=== PATIENT | male | born 1965 | race African-American/Black ===

== ENCOUNTER 2017-10-01 09:17 | Inpatient (IN) | payer OTHER ==
[2017-10-01 11:27] VITALS: BMI 26.9
--- NOTE | 2017-10-01 14:52 | HP ---
CIWA Score - CIWA Score Nausea/Vomitin Muscle Tremors: 2 Anxiety: 1-Mildly Anxious Agitation: 0-Normal Activity Paroxysmal Sweats: 3 Orientation: 0-Oriented Tacttile Disturbances: 3-Moderate Itch/Numb/Burn Auditory Disturbances: 0-None Visual Disturbances: 0-None Headache: 4-Moderately Severe CIWA-Ar Total Score: 16 Admission ROS S - [facility] Chief Complaint: "I need to be clean because I am going for surgery soon." Pt. is here to Detox from Alcohol. Allergies/Adverse Reactions: Allergies Allergy/AdvReac Type Severity Reaction Status Date / Time fish derived [Fish derived] Allergy Mild Rash Verified 10/01/17 11:54 No Known Drug Allergies Allergy Verified 10/01/17 11:54 banana AdvReac Severe Vomiting Uncoded 10/01/17 11:54 History of Present Illness: Pt. is a 51 YO male here to Detox from Alcohol. Patient has had several previous Detox admissions at [facility] in the past (last: 06/2016). Pt. had a Detox Admission at [facility] ([place], [place] approx 6 months ago. Longest period of sobriety in recent years: approx. 1 month (03/2017). Exam Limitations: No Limitations - Ebola screening Have you traveled outside of the country in the last 21 days: No (N) Have you had contact with anyone from an Ebola affected area: No Have you been sick,other than usual withdrawal symptoms: No Do you have a fever: No - Review of Systems Constitutional: Chills, Diaphoresis, Fever, Loss of Appetite, Malaise, Night Sweats, Changes in sleep, Unintentional Wgt. Loss (Lost approx. 20 lbs over last 6 months.) EENT: reports: Blurred Vision Respiratory: reports: No Symptoms reported Cardiac: reports: Palpitations GI: reports: Nausea, Indigestion (Heartburn.) : reports: No Symptoms Reported Musculoskeletal: reports: Back Pain, Muscle Pain, Neck Pain, Joint Stiffness Integumentary: reports: Rash (On bilateral arms and legs X approx. week (no known cause). Patient reports that affected areas feel itchy and that this condition has occurred in the past that it was treated with hydrocortisone cream..) Neuro: reports: Headache, Numbness (Bilateral Feet.), Tingling (Bilateral Feet.) , Tremors Endocrine: reports: No Symptoms Reported Hematology: reports: No Symptoms Reported Psychiatric: reports: Judgement Intact, Mood/Affect Appropiate, Orientated x3, Anxious, Depressed (On meds.) Other Systems: Reviewed and Negative Patient History - Patient Medical History Hx Anemia: No Hx Asthma: No Hx Chronic Obstructive Pulmonary Disease (COPD): No Hx Cancer: No Hx Cardiac Disorders: No Hx Congestive Heart Failure: No Hx Hypertension: Yes (on meds.) Hx Hypercholesterolemia: Yes (simvastatin 20 mg) Hx Pacemaker: No HX Cerebrovascular Accident: No Hx Seizures: No Hx Dementia: No Hx Diabetes: Yes (On meds.) Hx Gastrointestinal Disorders: Yes (GERD) Hx Liver Disease: No Hx Genitourinary Disorders: No Hx Sexually Transmitted Disorders: No Hx Renal Disease (ESRD): No Hx Thyroid Disease: No Hx Human Immunodeficiency Virus (HIV): No (Last tested approx. 1 year ago: NEGATIVE.) Hx Hepatitis C: No (NEGATIVE HX) Hx Depression: Yes (And Anxiety; On meds.) Hx Suicide Attempt: No (PATIENT DENIES CURRENT SI / HI.) Hx Bipolar Disorder: Yes (On meds.) Hx Schizophrenia: No Other Medical History: Neuropathy - Bilateral Feet. - Patient Surgical History Past Surgical History: No Hx Neurologic Surgery: No Hx Cataract Extraction: No Hx Cardiac Surgery: No Hx Lung Surgery: No Hx Breast Surgery: No Hx Breast Biopsy: No Hx Abdominal Surgery: No Hx Appendectomy: No Hx Cholecystectomy: No Hx Genitourinary Surgery: No Hx Section: No Hx Orthopedic Surgery: No Anesthesia Reaction: No - PPD History Previous Implant?: Yes Documented Results: Positive w/o proof Implanted On Prior [facility] Admission?: No PPD to be Administered?: No - Reproductive History Patient is a Female of Child Bearing Age (11 -55 yrs old): No (PATIENT IS MALE.) - Smoking Cessation Smoking history: Current every day smoker Have you smoked in the past 12 months: Yes Aproximately how many cigarettes per day: 4 Cigars Per Day: 0 Hx Chewing Tobacco Use: No Initiated information on smoking cessation: Yes 'Breaking Loose' booklet given: 10/01/17 (GIVEN TO PATIENT.) - Substance & Tx. History Hx Alcohol Use: Yes Hx Substance Use: Yes Substance Use Type: Alcohol, Cocaine Hx Substance Use Treatment: Yes (Previous Detox admssions at [facility]; Detox admission at [facility] (02/2017).) - Substances Abused Alcohol Route: Oral Frequency: Daily Amount used: 2-3 pints liquor/ 2 6pks beer Age of first use: 16 Date of Last Use: 10/01/17 Cocaine Route: Smoking Frequency: Daily Amount used: $400-500 Age of first use: 17 Date of Last Use: 10/01/17 Family Disease History - Family Disease History Family Disease History: Diabetes: Father (.), Heart Disease: Brother ( HTN,CVA) Admission Physical Exam [facility] - Vital Signs Vital Signs: Vital Signs - 24 hr 10/01/17 11:24 Temperature 97.4 F L Pulse Rate 70 Respiratory 20 Rate Blood Pressure 144/91 - Physical General Appearance: Yes: No Apparent Distress, Nourished, Appropriately Dressed , Tremorous, Anxious HEENTM: Yes: Hearing grossly Normal, Normocephalic, Normal Voice, CHRISTINE, Pharynx Normal Respiratory: Yes: Chest Non-Tender, Lungs Clear, No Respiratory Distress, No Accessory Muscle Use Neck: Yes: No masses,lesions,Nodules, Supple, Trachea in good position Breast: Yes: Breast Exam Deferred Cardiology: Yes: Regular Rhythm, Regular Rate, S1, S2 Abdominal: Yes: Normal Bowel Sounds, Non Tender, Flat, Soft Genitourinary: Yes: Within Normal Limits Back: Yes: Decreased Range of Motion Musculoskeletal: Yes: Gait Steady, Back pain, Joint Stiffness, Muscle Pain Extremities: Yes: Normal Range of Motion, Tremors Neurological: Yes: Fully Oriented, Alert, Normal Mood/Affect, Normal Response Integumentary: Yes: Normal Color, Dry, Warm, Rash (Small areas of skin irritation on bilateral marion and legs. Patient reports that these areas are areas that he has been scratching.) Lymphatic: Yes: Within Normal Limits - Diagnostic (1) Alcohol dependence with uncomplicated withdrawal Current Visit: Yes Status: Acute (2) Cocaine dependence, uncomplicated Current Visit: Yes Status: Chronic (3) Eczema Current Visit: Yes Status: Chronic Qualifiers: Eczema type: other Qualified Code(s): L30.8 - Other specified dermatitis (4) GERD (gastroesophageal reflux disease) Current Visit: Yes Status: Chronic Qualifiers: Esophagitis presence: without esophagitis Qualified Code(s): K21.9 - Gastro -esophageal reflux disease without esophagitis (5) HTN (hypertension) Current Visit: Yes Status: Chronic Qualifiers: Hypertension type: essential hypertension (6) Hypercholesterolemia Current Visit: Yes Status: Chronic (7) Nicotine dependence Current Visit: Yes Status: Chronic Qualifiers: Nicotine product type: cigarettes Substance use status: uncomplicated Qualified Code(s): F17.210 - Nicotine dependence, cigarettes, uncomplicated (8) Type II diabetes mellitus Current Visit: Yes Status: Chronic Qualifiers: Diabetes mellitus complication status: without complication Diabetes mellitus exterminator insulin use: with exterminator use Qualified Code(s): E11.9 - Type 2 diabetes mellitus without complications; Z79.4 - [facility]CI (current) use of insulin; Z79.4 - [facility]CI (current) use of insulin; Z79.4 - [facility]CI ( current) use of insulin; Z79.4 - [facility]CI (current) use of insulin (9) History of depression Current Visit: Yes Status: Chronic (10) History of bipolar disorder Current Visit: Yes Status: Chronic (11) Neuropathy Current Visit: Yes Status: Chronic Cleared for Admission S - Detox or Rehab [facility] Level of Care: Medically Managed Detox Regimen/Protocol: Valium [facility] Breath Alcohol Content Breath Alcohol Content: 0 Urine Drug Screen - Results Drug Screen Negative: No Urine Drug Screen Results: ANCELMO-Cocaine
[2017-10-01] MEDS ORDERED: LOPERAMIDE HCL 2 MG CAPSULE PO PRN (15:25)
[2017-10-01] MEDS ORDERED: chlordiazePOXIDE HCL 25 MG CAPSULE PO PRN (15:25)
[2017-10-01] MEDS ORDERED: MAGNESIUM HYDROX 2400MG/30ML ORAL SUSPENSION 30 ML CUP PO PRN (15:25)
[2017-10-01] MEDS ORDERED: MAGNESIUM CITRATE 300 ML BOTTLE PO PRN (15:25)
[2017-10-01] MEDS ORDERED: MAG HYDROX/AL HYDROX/SIMETH 30 ML UNIT-DOSE CUP PO PRN (15:25)
[2017-10-01] MEDS ORDERED: P-EPHED 60MG/TRIPROLIDI 2.5MG TABLET PO PRN (15:25)
[2017-10-01] MEDS ORDERED: MENTHOL/PHENOL 1 EACH UD MM PRN (15:25)
[2017-10-01] MEDS ORDERED: guaiFENesin/D-METHORPHAN HB 10 ML UNIT-DOSE CUPS PO PRN (15:25)
[2017-10-01] MEDS ORDERED: chlordiazePOXIDE HCL 25 MG CAPSULE PO ONE (15:25)
[2017-10-01] MEDS ORDERED: IBUPROFEN 400 MG TABLET (FP) PO PRN (15:25)
[2017-10-01] MEDS ORDERED: NICOTINE POLACRILEX 2 MG GUM BUC PRN (15:25)
[2017-10-01] MEDS ORDERED: diazePAM 5 MG TABLET PO ONE (15:41)
[2017-10-01] MEDS ORDERED: metFORMIN HCL 500 MG TABLET (FP) PO SCH (16:30)
--- NOTE | 2017-10-01 16:32 | PN ---
[facility] Progress Note Note: Received call from [facility] pharmacist noting that patient's GFR on previous visit was < 45; therefore, dose of Metformin is recommended to be 500 mg PO BID despite fact that patient reports that he takes 1000 mg PO BID. Metformin dose changed for time being to 500 mg BID. Will evaluate pt.'s Renal labs tomorrow AM before determining whether or not then increase Metformin dosage. Mark Bills NP
[2017-10-01] MEDS: metFORMIN HCL 500 MG TABLET (FP) PO SCH (16:58)
[2017-10-01] MEDS ORDERED: chlordiazePOXIDE HCL 25 MG CAPSULE PO SCH (17:00)
--- NOTE | 2017-10-01 18:03 | CONSULT ---
[facility] Psychiatric Consult - Data Date of interview: 10/01/17 Admission source: [facility] Identifying data: Readmission to [facility] for this 51 y/o AA male seeking detox treatment on for alcohol and cocaine dependence.Patient is single, father of two,domiciled,curently unemployed and supported on [facility] benefits. Substance Abuse History: Confirmed by patient in this session.Details in current [facility] report : Smoking history: Current every day smoker. Have you smoked in the past 12 months: Yes. Aproximately how many cigarettes per day: 4. Cigars Per Day: 0. Hx Chewing Tobacco Use: No. Initiated information on smoking cessation: Yes. 'Breaking Loose' booklet given: 10/01/17 (GIVEN TO PATIENT.). - Substance & Tx. History. Hx Alcohol Use: Yes. Hx Substance Use: Yes. Substance Use Type: Alcohol, Cocaine. Hx Substance Use Treatment: Yes ( Previous Detox admssions at [facility]; Detox admission at [facility] (02/2017).). - Substances Abused. Alcohol. Route: Oral. Frequency: Daily. Amount used: 2 -3 pints liquor/ 2 6pks beer. Age of first use: 16. Date of Last Use: . Cocaine. Route: Smoking. Frequency: Daily. Amount used: $400-500. Age of first use: 17. Date of Last Use: 10/01/17 Medical History: Neuropathy,GERD,hypertension,hypercholesterolemia,diabetes mellitus and past history of treatment for anal warts. Psychiatric History: Onset of mental illness (age 39) as per self- report.Diagnosed with MDD and Anxiety Disorder.One psychiatric hospitalization ( 2009) at [facility] in 2009.Mr Hopkins continues to get his outpatient psychiatric services at [facility],located in [facility].Maintained on a regimen of wellbutrin XL 150 mg po/day + seroquel XR 200 mg/hs.Patient endorses adequate adherence to medications (last taken two days ago).No reported history of suicide attempts. Physical/Sexual Abuse/Trauma History: Patient denies. Additional Comment: Urine Drug Screen Results: ANCELMO-Cocaine.Noted. Mental Status Exam - Mental Status Exam Alert and Oriented to: Time, Place, Person Cognitive Function: Good Patient Appearance: Well Groomed Mood: Hopeful, Euthymic Affect: Appropriate, Normal Range Patient Behavior: Fatigued, Cooperative Speech Pattern: Clear, Appropriate Voice Loudness: Normal Thought Process: Goal Oriented Thought Disorder: Not Present Hallucinations: Denies Suicidal Ideation: Denies Homicidal Ideation: Denies Insight/Judgement: Poor Sleep: Poorly, Difficulty falling asleep Appetite: Good Muscle strength/Tone: Normal Gait/Station: Normal Psychiatric Findings - Problem List ([place] 1, 2,3) (1) Alcohol dependence with uncomplicated withdrawal Current Visit: Yes Status: Acute (2) Cocaine dependence, uncomplicated Current Visit: Yes Status: Acute (3) Nicotine dependence Current Visit: Yes Status: Acute Qualifiers: Nicotine product type: cigarettes Substance use status: in withdrawal Qualified Code(s): F17.213 - Nicotine dependence, cigarettes, with withdrawal (4) MDD (major depressive disorder) Current Visit: No Status: Chronic Comment: Self-report.On medications and affiliated with [facility] for outpatient psychiatric services. (5) Insomnia Current Visit: Yes Status: Acute - Initial Treatment Plan Initial Treatment Plan: Old records revisited.Psychoeducation and support provided.Detoxification in progress.Medications : wellbutric XL 150 mg po daily + seroquel 100 mg po hs.Ordered.Side effects/benefits of both drugs are discussed with the patient.Consent (verbal) given by patient for this careplan.Observation.Pharmacy claims of JulyAugust 2017 confirmed refills for these medications.Will titrate seroquel to 200 mg/hs if no occurrence of oversedation in next 24-48 hours.
[2017-10-01 21:36] LABS: URINE APPEARANCE CLEAR; URINE BILIRUBIN NEGATIVE (NEGATIVE); URINE BLOOD NEGATIVE (NEGATIVE); URINE COLOR LTYELLOW; URINE GLUCOSE (UA) 3+ (NEGATIVE); URINE KETONE NEGATIVE (NEGATIVE); URINE LEUK ESTERASE NEGATIVE (NEGATIVE); URINE NITRITE NEGATIVE (NEGATIVE); URINE UROBILINOGEN NEGATIVE mg/dL (0.2-1.0)
[2017-10-01 21:39] LABS: URINE PROTEIN 2+ (NEGATIVE)
[2017-10-01] MEDS: INSULIN DETEMIR 100 UNITS/ML MDV SQ SCH (21:47)
[2017-10-01] MEDS: THIAMINE HCL 100 MG TABLET (FP) PO SCH (21:48)
[2017-10-01] MEDS: HYDROCORTISONE 0.5% TOPICAL OINTMENT TUBE TP SCH (21:48)
[2017-10-01] MEDS: QUEtiapine FUMARATE 100 MG TABLET (FP) PO SCH (21:49)
[2017-10-01] MEDS: PATIENT'S OWN MEDICATION (NON-FORMULARY) (Simvastatin 20 MG) PO SCH (21:49)
[2017-10-01] MEDS: diazePAM 5 MG TABLET PO SCH (21:49)
[2017-10-02] MEDS: diazePAM 5 MG TABLET PO SCH ×3 (05:46→22:54)
[2017-10-02] MEDS: metFORMIN HCL 500 MG TABLET (FP) PO SCH ×2 (08:19→16:42)
[2017-10-02] MEDS: glyBURIDE 5 MG TABLET (UD) PO SCH (08:19)
[2017-10-02] MEDS ORDERED: ERGOCALCIFEROL (VITAMIN D2) 50,000 UNIT CAPSULE (FP) PO SCH (10:00)
[2017-10-02 10:10] LABS: HEMATOCRIT 40.8 % (35.4-49); HEMOGLOBIN 13.4 GM/dL (11.7-16.9); MCH 27.4 pg (25.7-33.7); MCHC 32.9 g/dl (32.0-35.9); MEAN CELL VOLUME 83.5 fl (80-96); MEAN PLT VOLUME 9.9 fl (7.5-11.1); PLATELET COUNT 302 K/MM3 (134-434); RBC 4.89 M/mm3 (4.00-5.60); RDW 14.6 % (11.9-15.9); WHITE BLOOD COUNT 8.8 K/mm3 (4.0-10.0)
[2017-10-02 10:14] LABS: CHLORIDE 103 mmol/L (98-107); POTASSIUM 4.4 mmol/L (3.5-5.1); SODIUM 138 mmol/L (136-145)
[2017-10-02 10:29] LABS: ALBUMIN 3.3 g/dl (3.4-5.0); ALK PHOS 102 U/L (45-117); ANION GAP 10 (8-16); BILIRUBIN,TOTAL 0.3 mg/dL (0.2-1.0); BLOOD UREA NITROGEN 14 mg/dL (7-18); CALCIUM 8.5 mg/dL (8.5-10.1); CO2 25 mmol/L (21-32); CREATININE 1.7 mg/dL (0.7-1.3); SGOT/AST 12 U/L (15-37); SGPT/ALT 18 U/L (12-78); TOT PROT 7.1 g/dl (6.4-8.2)
--- NOTE | 2017-10-02 10:34 | EKG ---
Test Reason : Blood Pressure : / mmHG Vent. Rate : 069 BPM Atrial Rate : 069 BPM P-R Int : 176 ms QRS Dur : 090 ms QT Int : 434 ms P-R-T Axes : 078 046 009 degrees QTc Int : 465 ms NORMAL SINUS RHYTHM NORMAL ECG NO PREVIOUS ECGS AVAILABLE Confirmed by FAMILIA ORTIZ MD ([id number]) on 10/02/2017 10:34:23 AM Referred By: Confirmed By:FAMILIA ORTIZ MD
[2017-10-02 10:48] LABS: GLUCOSE,RANDOM 376 mg/dL (74-106)
[2017-10-02] MEDS: LISINOPRIL 5 MG TABLET (FP) PO SCH (10:51)
[2017-10-02] MEDS: HYDROCORTISONE 0.5% TOPICAL OINTMENT TUBE TP SCH ×2 (10:52→22:54)
[2017-10-02] MEDS: diazePAM 5 MG TABLET PO PRN (10:52)
[2017-10-02] MEDS: ASPIRIN COATED 81 MG TABLET.EC PO SCH (10:52)
[2017-10-02] MEDS: PRENATAL VITAMINS W/ FOLIC ACID TABLET (FP) PO SCH (10:52)
--- NOTE | 2017-10-02 10:53 | PN ---
[facility] CIWA - CIWA Score Nausea/Vomitin-No Nausea/No Vomiting Muscle Tremors: 4-Moderate,w/Arms Extend Anxiety: 5 Agitation: 4-Moderately Restless Paroxysmal Sweats: 1-Minimal Palms Moist Orientation: 0-Oriented Tacttile Disturbances: 3-Moderate Itch/Numb/Burn Auditory Disturbances: 0-None Visual Disturbances: 0-None Headache: 0-None Present CIWA-Ar Total Score: 17 [facility] Progress Note (SOAP) Subjective: ANXIETY,IRRITABILITY,INTERMITTENT SLEEP. Objective: 10/02/17 10:52 Vital Signs Temperature 99.5 F 10/02/17 10:23 Pulse Rate 74 10/02/17 10:23 Respiratory Rate 18 10/02/17 10:23 Blood Pressure 118/65 10/02/17 10:23 O2 Sat by Pulse Oximetry (%) Laboratory Last Values WBC 8.8 K/mm3 (4.0-10.0) 10/02/17 05:45 RBC 4.89 M/mm3 (4.00-5.60) 10/02/17 05:45 Hgb 13.4 GM/dL (11.7-16.9) 10/02/17 05:45 Hct 40.8 % (35.4-49) 10/02/17 05:45 MCV 83.5 fl (80-96) 10/02/17 05:45 MCH 27.4 pg (25.7-33.7) 10/02/17 05:45 MCHC 32.9 g/dl (32.0-35.9) 10/02/17 05:45 RDW 14.6 % (11.9-15.9) 10/02/17 05:45 Plt Count 302 K/MM3 (134-434) D 10/02/17 05:45 MPV 9.9 fl (7.5-11.1) 10/02/17 05:45 Sodium 138 mmol/L (136-145) 10/02/17 05:45 Potassium 4.4 mmol/L (3.5-5.1) 10/02/17 05:45 Chloride 103 mmol/L (98-107) 10/02/17 05:45 Carbon Dioxide 25 mmol/L (21-32) 10/02/17 05:45 Anion Gap 10 (8-16) 10/02/17 05:45 BUN 14 mg/dL (7-18) 10/02/17 05:45 Creatinine 1.7 mg/dL (0.7-1.3) H 10/02/17 05:45 Creat Clearance w eGFR 43.05 (>60) 10/02/17 05:45 POC Glucometer 263 UNITS (80-120) 10/02/17 05:44 Random Glucose 376 mg/dL (74-106) H* D 10/02/17 05:45 Calcium 8.5 mg/dL (8.5-10.1) 10/02/17 05:45 Total Bilirubin 0.3 mg/dL (0.2-1.0) D 10/02/17 05:45 AST 12 U/L (15-37) L D 10/02/17 05:45 ALT 18 U/L (12-78) 10/02/17 05:45 Alkaline Phosphatase 102 U/L (45-117) D 10/02/17 05:45 Total Protein 7.1 g/dl (6.4-8.2) 10/02/17 05:45 Albumin 3.3 g/dl (3.4-5.0) L 10/02/17 05:45 Urine Color Ltyellow 10/01/17 20:00 Urine Appearance Clear 10/01/17 20:00 Urine pH 5.0 (5.0-8.0) 10/01/17 20:00 Ur Specific [place] 1.026 (1.001-1.035) 10/01/17 20:00 Urine Protein 2+ (NEGATIVE) H 10/01/17 20:00 Urine Glucose (UA) 3+ (NEGATIVE) H 10/01/17 20:00 Urine Ketones Negative (NEGATIVE) 10/01/17 20:00 Urine Blood Negative (NEGATIVE) 10/01/17 20:00 Urine Nitrite Negative (NEGATIVE) 10/01/17 20:00 Urine Bilirubin Negative (NEGATIVE) 10/01/17 20:00 Urine Urobilinogen Negative mg/dL (0.2-1.0) 10/01/17 20:00 Ur Leukocyte Esterase Negative (NEGATIVE) 10/01/17 20:00 Urine WBC (Auto) <1 /hpf (3-5) 10/01/17 20:00 Urine RBC (Auto) <1 /hpf (0-3) 10/01/17 20:00 HIV 1&2 Antibody Screen Negative 10/01/17 12:00 HIV P24 Antigen Negative 10/01/17 12:00 LABS NOTED. Assessment: 10/02/17 10:53 WITHDRAWAL SX Plan: CONTINUE DETOX
[2017-10-02] MEDS: PATIENT'S OWN MEDICATION (NON-FORMULARY) (Omeprazole [Prilosec] 40 MG) PO SCH (10:54)
[2017-10-02] MEDS ORDERED: INSULIN (NOVOLOG) ASPART 100 UNITS/ML 10ML VIAL SQ ONE (12:38)
[2017-10-02] MEDS ORDERED: chlordiazePOXIDE HCL 25 MG CAPSULE PO SCH (17:00)
[2017-10-02] MEDS: INSULIN SLIDING SCALE (NOVOLOG) 1 VIAL SQ SCH (17:02)
[2017-10-02] MEDS: THIAMINE HCL 100 MG TABLET (FP) PO SCH (22:53)
[2017-10-02] MEDS: PATIENT'S OWN MEDICATION (NON-FORMULARY) (Simvastatin 20 MG) PO SCH (22:54)
[2017-10-02] MEDS: QUEtiapine FUMARATE 100 MG TABLET (FP) PO SCH (22:54)
[2017-10-02] MEDS: INSULIN DETEMIR 100 UNITS/ML MDV SQ SCH (22:55)
[2017-10-03] MEDS: glyBURIDE 5 MG TABLET (UD) PO SCH ×2 (07:14→07:27)
[2017-10-03] MEDS: metFORMIN HCL 500 MG TABLET (FP) PO SCH ×3 (07:15→16:33)
[2017-10-03] MEDS: INSULIN SLIDING SCALE (NOVOLOG) 1 VIAL SQ SCH ×2 (07:15→17:04)
[2017-10-03] MEDS ORDERED: AMOX TR/POT CLAV 875MG/125MG TABLETS (FP) PO ONE (09:34)
[2017-10-03] MEDS ORDERED: LIDOCAINE VISCOUS 2% ORAL/TOP 20 ML UNIT-DOSE CUP MM ONE (09:38)
[2017-10-03] MEDS ORDERED: LIDOCAINE VISCOUS 2% ORAL/TOP 20 ML UNIT-DOSE CUP MM PRN (09:39)
[2017-10-03] MEDS: PATIENT'S OWN MEDICATION (NON-FORMULARY) (Omeprazole [Prilosec] 40 MG) PO SCH (10:34)
[2017-10-03] MEDS: diazePAM 5 MG TABLET PO SCH ×2 (10:34→22:53)
[2017-10-03] MEDS: ASPIRIN COATED 81 MG TABLET.EC PO SCH (10:34)
[2017-10-03] MEDS: LISINOPRIL 5 MG TABLET (FP) PO SCH (10:35)
[2017-10-03] MEDS: HYDROCORTISONE 0.5% TOPICAL OINTMENT TUBE TP SCH ×2 (10:35→22:51)
[2017-10-03] MEDS: PRENATAL VITAMINS W/ FOLIC ACID TABLET (FP) PO SCH (10:35)
[2017-10-03] MEDS: ACETAMINOPHEN 325 MG TABLET (FP) PO PRN (10:38)
[2017-10-03] MEDS: CYCLOBENZAPRINE HCL 10 MG TABLET (FP) PO PRN ×2 (10:38→16:59)
--- NOTE | 2017-10-03 12:22 | PN ---
[facility] CIWA - CIWA Score Nausea/Vomitin-No Nausea/No Vomiting Muscle Tremors: 4-Moderate,w/Arms Extend Anxiety: 4-Mod. Anxious/Guarded Agitation: 4-Moderately Restless Paroxysmal Sweats: 1-Minimal Palms Moist Orientation: 0-Oriented Tacttile Disturbances: 3-Moderate Itch/Numb/Burn Auditory Disturbances: 0-None Visual Disturbances: 0-None Headache: 1-Very Mild CIWA-Ar Total Score: 17 [facility] Progress Note (SOAP) Subjective: ANXIETY,IRRITABILITY,TOOTH ACHE. PT STATES HAD APPOINTMENT TO THE DENTIST ON DAY HE CAME INTO DETOX RATHER THAN KEEPING THE APPOINTMENT, "CAME HERE TO TAKE CARE OF MY PROBLEM". Objective: 10/03/17 12:19 Vital Signs Temperature 96.5 F L 10/03/17 09:52 Pulse Rate 88 10/03/17 09:52 Respiratory Rate 20 10/03/17 09:52 Blood Pressure 135/87 10/03/17 09:52 O2 Sat by Pulse Oximetry (%) Laboratory Last Values WBC 8.8 K/mm3 (4.0-10.0) 10/02/17 05:45 RBC 4.89 M/mm3 (4.00-5.60) 10/02/17 05:45 Hgb 13.4 GM/dL (11.7-16.9) 10/02/17 05:45 Hct 40.8 % (35.4-49) 10/02/17 05:45 MCV 83.5 fl (80-96) 10/02/17 05:45 MCH 27.4 pg (25.7-33.7) 10/02/17 05:45 MCHC 32.9 g/dl (32.0-35.9) 10/02/17 05:45 RDW 14.6 % (11.9-15.9) 10/02/17 05:45 Plt Count 302 K/MM3 (134-434) D 10/02/17 05:45 MPV 9.9 fl (7.5-11.1) 10/02/17 05:45 Sodium 138 mmol/L (136-145) 10/02/17 05:45 Potassium 4.4 mmol/L (3.5-5.1) 10/02/17 05:45 Chloride 103 mmol/L (98-107) 10/02/17 05:45 Carbon Dioxide 25 mmol/L (21-32) 10/02/17 05:45 Anion Gap 10 (8-16) 10/02/17 05:45 BUN 14 mg/dL (7-18) 10/02/17 05:45 Creatinine 1.7 mg/dL (0.7-1.3) H 10/02/17 05:45 Creat Clearance w eGFR 43.05 (>60) 10/02/17 05:45 POC Glucometer 204 UNITS (80-120) 10/03/17 07:24 Random Glucose 376 mg/dL (74-106) H* D 10/02/17 05:45 Calcium 8.5 mg/dL (8.5-10.1) 10/02/17 05:45 Total Bilirubin 0.3 mg/dL (0.2-1.0) D 10/02/17 05:45 AST 12 U/L (15-37) L D 10/02/17 05:45 ALT 18 U/L (12-78) 10/02/17 05:45 Alkaline Phosphatase 102 U/L (45-117) D 10/02/17 05:45 Total Protein 7.1 g/dl (6.4-8.2) 10/02/17 05:45 Albumin 3.3 g/dl (3.4-5.0) L 10/02/17 05:45 Urine Color Ltyellow 10/01/17 20:00 Urine Appearance Clear 10/01/17 20:00 Urine pH 5.0 (5.0-8.0) 10/01/17 20:00 Ur Specific [place] 1.026 (1.001-1.035) 10/01/17 20:00 Urine Protein 2+ (NEGATIVE) H 10/01/17 20:00 Urine Glucose (UA) 3+ (NEGATIVE) H 10/01/17 20:00 Urine Ketones Negative (NEGATIVE) 10/01/17 20:00 Urine Blood Negative (NEGATIVE) 10/01/17 20:00 Urine Nitrite Negative (NEGATIVE) 10/01/17 20:00 Urine Bilirubin Negative (NEGATIVE) 10/01/17 20:00 Urine Urobilinogen Negative mg/dL (0.2-1.0) 10/01/17 20:00 Ur Leukocyte Esterase Negative (NEGATIVE) 10/01/17 20:00 Urine WBC (Auto) <1 /hpf (3-5) 10/01/17 20:00 Urine RBC (Auto) <1 /hpf (0-3) 10/01/17 20:00 RPR Titer Nonreactive (NONREACTIVE) 10/02/17 05:45 Hepatitis C Antibody 4.3 s/co ratio (0.0-0.9) H 10/01/17 05:45 HIV 1&2 Antibody Screen Negative 10/01/17 12:00 HIV P24 Antigen Negative 10/01/17 12:00 RED SWOLLEN GUM WITH ROTTED MOLAR TOOTH ON RIGHT LOWER JAW. CXR- NO PATHOLOGY;NO CHANGE FROM PREVIOUS Assessment: 10/03/17 12:21 WITHDRAWAL SX TOOTH ABSCESS GINGIVITIS Plan: CONTINUE DETOX AUGMENTIN 875 MG PO BID LIDOCAINE SWISH DIRECTED PRN.
[2017-10-03] MEDS ORDERED: INSULIN (NOVOLOG) ASPART 100 UNITS/ML 10ML VIAL ONE ×2 (16:58→17:54)
[2017-10-03] MEDS: diazePAM 5 MG TABLET PO PRN (16:59)
[2017-10-03] MEDS ORDERED: chlordiazePOXIDE 5 MG CAPSULE PO SCH (17:00)
[2017-10-03] MEDS: NAPROXEN 375 MG TABLET (FP) PO PRN (17:00)
--- NOTE | 2017-10-03 17:46 | PN ---
[facility] Progress Note Note: Psychiatry Attending's note (follow-up): Met with patient. Complaint : insomnia. Patient is ambulatory. No evidence of oversedation. Steady gait. Seroquel 200 mg po hs.Ordered. Patient agrees with plan.
[2017-10-03] MEDS: INSULIN DETEMIR 100 UNITS/ML MDV SQ SCH (22:52)
[2017-10-03] MEDS: THIAMINE HCL 100 MG TABLET (FP) PO SCH (22:53)
[2017-10-03] MEDS: PATIENT'S OWN MEDICATION (NON-FORMULARY) (Simvastatin 20 MG) PO SCH (22:53)
[2017-10-03] MEDS: QUEtiapine FUMARATE 200 MG TABLET PO SCH (22:53)
[2017-10-04] MEDS: ACETAMINOPHEN 325 MG TABLET (FP) PO PRN (01:20)
[2017-10-04] MEDS: glyBURIDE 5 MG TABLET (UD) PO SCH (07:51)
[2017-10-04] MEDS: metFORMIN HCL 500 MG TABLET (FP) PO SCH ×2 (07:51→17:40)
[2017-10-04] MEDS ORDERED: INSULIN (NOVOLOG) ASPART 100 UNITS/ML 10ML VIAL ONE ×2 (07:57→17:41)
[2017-10-04] MEDS: INSULIN SLIDING SCALE (NOVOLOG) 1 VIAL SQ SCH ×2 (08:09→17:42)
[2017-10-04] MEDS: diazePAM 5 MG TABLET PO SCH ×2 (10:36→22:51)
[2017-10-04] MEDS: ASPIRIN COATED 81 MG TABLET.EC PO SCH (10:36)
[2017-10-04] MEDS: PRENATAL VITAMINS W/ FOLIC ACID TABLET (FP) PO SCH (10:36)
[2017-10-04] MEDS: PATIENT'S OWN MEDICATION (NON-FORMULARY) (Omeprazole [Prilosec] 40 MG) PO SCH (10:37)
[2017-10-04] MEDS: HYDROCORTISONE 0.5% TOPICAL OINTMENT TUBE TP SCH ×2 (10:37→22:47)
[2017-10-04] MEDS: NAPROXEN 375 MG TABLET (FP) PO PRN ×2 (10:37→22:46)
[2017-10-04] MEDS: LISINOPRIL 5 MG TABLET (FP) PO SCH (10:38)
[2017-10-04] MEDS ORDERED: AMOX TR/POT CLAV 875MG/125MG TABLETS (FP) PO ONE (11:30)
--- NOTE | 2017-10-04 16:58 | PN ---
[facility] Progress Note (SOAP) Subjective: Interrupted Sleep, Sweating, Anxious, H/A. Objective: PT. A & O X 3, OBSERVED AMBULATING ON UNIT. NO ACUTE DISTRESS. PT. DENIES CHEST PAIN. 10/04/17 16:55 Vital Signs Temperature 96.7 F L 10/04/17 10:44 Pulse Rate 98 H 10/04/17 10:44 Respiratory Rate 118 H 10/04/17 10:44 Blood Pressure 138/91 10/04/17 10:44 O2 Sat by Pulse Oximetry (%) Laboratory Tests 10/01/17 10/01/17 10/01/17 05:45 12:00 12:04 WBC RBC Hgb Hct MCV MCH MCHC RDW Plt Count MPV Sodium Potassium Chloride Carbon Dioxide Anion Gap BUN Creatinine Creat Clearance w eGFR POC Glucometer 411 Random Glucose Calcium Total Bilirubin AST ALT Alkaline Phosphatase Total Protein Albumin Urine Color Urine Appearance Urine pH Ur Specific [place] Urine Protein Urine Glucose (UA) Urine Ketones Urine Blood Urine Nitrite Urine Bilirubin Urine Urobilinogen Ur Leukocyte Esterase Urine WBC (Auto) Urine RBC (Auto) RPR Titer Hepatitis C Antibody 4.3 H HIV 1&2 Antibody Screen Negative HIV P24 Antigen Negative 10/01/17 10/01/17 10/01/17 17:13 20:00 21:21 WBC RBC Hgb Hct MCV MCH MCHC RDW Plt Count MPV Sodium Potassium Chloride Carbon Dioxide Anion Gap BUN Creatinine Creat Clearance w eGFR POC Glucometer 335 433 Random Glucose Calcium Total Bilirubin AST ALT Alkaline Phosphatase Total Protein Albumin Urine Color Ltyellow Urine Appearance Clear Urine pH 5.0 Ur Specific [place] 1.026 Urine Protein 2+ H Urine Glucose (UA) 3+ H Urine Ketones Negative Urine Blood Negative Urine Nitrite Negative Urine Bilirubin Negative Urine Urobilinogen Negative Ur Leukocyte Esterase Negative Urine WBC (Auto) <1 Urine RBC (Auto) <1 RPR Titer Hepatitis C Antibody HIV 1&2 Antibody Screen HIV P24 Antigen 10/02/17 10/02/17 10/02/17 05:44 05:45 05:45 WBC 8.8 RBC 4.89 Hgb 13.4 Hct 40.8 MCV 83.5 MCH 27.4 MCHC 32.9 RDW 14.6 Plt Count 302 D MPV 9.9 Sodium 138 Potassium 4.4 Chloride 103 Carbon Dioxide 25 Anion Gap 10 BUN 14 Creatinine 1.7 H Creat Clearance w eGFR 43.05 POC Glucometer 263 Random Glucose 376 H* D Calcium 8.5 Total Bilirubin 0.3 D AST 12 L D ALT 18 Alkaline Phosphatase 102 D Total Protein 7.1 Albumin 3.3 L Urine Color Urine Appearance Urine pH Ur Specific [place] Urine Protein Urine Glucose (UA) Urine Ketones Urine Blood Urine Nitrite Urine Bilirubin Urine Urobilinogen Ur Leukocyte Esterase Urine WBC (Auto) Urine RBC (Auto) RPR Titer Hepatitis C Antibody HIV 1&2 Antibody Screen HIV P24 Antigen 10/02/17 10/02/17 10/02/17 05:45 16:33 20:48 WBC RBC Hgb Hct MCV MCH MCHC RDW Plt Count MPV Sodium Potassium Chloride Carbon Dioxide Anion Gap BUN Creatinine Creat Clearance w eGFR POC Glucometer 140 233 Random Glucose Calcium Total Bilirubin AST ALT Alkaline Phosphatase Total Protein Albumin Urine Color Urine Appearance Urine pH Ur Specific [place] Urine Protein Urine Glucose (UA) Urine Ketones Urine Blood Urine Nitrite Urine Bilirubin Urine Urobilinogen Ur Leukocyte Esterase Urine WBC (Auto) Urine RBC (Auto) RPR Titer Nonreactive Hepatitis C Antibody HIV 1&2 Antibody Screen HIV P24 Antigen 10/03/17 10/03/17 10/03/17 07:24 16:39 20:22 WBC RBC Hgb Hct MCV MCH MCHC RDW Plt Count MPV Sodium Potassium Chloride Carbon Dioxide Anion Gap BUN Creatinine Creat Clearance w eGFR POC Glucometer 204 376 291 Random Glucose Calcium Total Bilirubin AST ALT Alkaline Phosphatase Total Protein Albumin Urine Color Urine Appearance Urine pH Ur Specific [place] Urine Protein Urine Glucose (UA) Urine Ketones Urine Blood Urine Nitrite Urine Bilirubin Urine Urobilinogen Ur Leukocyte Esterase Urine WBC (Auto) Urine RBC (Auto) RPR Titer Hepatitis C Antibody HIV 1&2 Antibody Screen HIV P24 Antigen 10/04/17 10/04/17 07:53 16:36 WBC RBC Hgb Hct MCV MCH MCHC RDW Plt Count MPV Sodium Potassium Chloride Carbon Dioxide Anion Gap BUN Creatinine Creat Clearance w eGFR POC Glucometer 237 293 Random Glucose Calcium Total Bilirubin AST ALT Alkaline Phosphatase Total Protein Albumin Urine Color Urine Appearance Urine pH Ur Specific [place] Urine Protein Urine Glucose (UA) Urine Ketones Urine Blood Urine Nitrite Urine Bilirubin Urine Urobilinogen Ur Leukocyte Esterase Urine WBC (Auto) Urine RBC (Auto) RPR Titer Hepatitis C Antibody HIV 1&2 Antibody Screen HIV P24 Antigen LABS NOTED. Assessment: 10/04/17 16:56 WITHDRAWAL SYMPTOMS. Plan: CONTINUE DETOX. PATIENT MADE AWARE OF POSITIVE HCV AB RESULT. PATIENT OFFERED OPPORTUNITY TO ASK QUESTIONS ABOUT RESULT. PATIENT ADVISED TO FOLLOW-UP WITH EMERGENCY CARE TECH DR. DEBORAH MEANS ('[facility]' [facility], [place], [place] AFTER DISCHARGE FROM DETOX FOR FURTHER MEDICAL EVALUATION. PATIENT VERBALIZED UNDERSTANDING OF RECOMMENDATION. COPIES OF ALL LABS DRAWN WHILE ADMITTED FOR DETOX (INCLUDING HCV AB RESULT) GIVEN TO PATIENT TO TAKE WITH HIM TO EMERGENCY CARE TECH AFTER DISCHARGE.
[2017-10-04] MEDS ORDERED: chlordiazePOXIDE HCL 10 MG CAPSULE PO SCH (17:00)
[2017-10-04] MEDS: AMOX TR/POT CLAV 875MG/125MG TABLETS (FP) PO SCH (17:40)
[2017-10-04] MEDS: QUEtiapine FUMARATE 200 MG TABLET PO SCH (22:46)
[2017-10-04] MEDS: THIAMINE HCL 100 MG TABLET (FP) PO SCH (22:46)
[2017-10-04] MEDS: PATIENT'S OWN MEDICATION (NON-FORMULARY) (Simvastatin 20 MG) PO SCH (22:47)
[2017-10-04] MEDS: INSULIN DETEMIR 100 UNITS/ML MDV SQ SCH (22:49)
[2017-10-05] MEDS: INSULIN SLIDING SCALE (NOVOLOG) 1 VIAL SQ SCH ×2 (07:52→17:39)
[2017-10-05] MEDS: glyBURIDE 5 MG TABLET (UD) PO SCH (07:52)
[2017-10-05] MEDS: metFORMIN HCL 500 MG TABLET (FP) PO SCH ×2 (07:52→17:39)
[2017-10-05] MEDS: AMOX TR/POT CLAV 875MG/125MG TABLETS (FP) PO SCH ×2 (09:06→17:39)
[2017-10-05] MEDS: PATIENT'S OWN MEDICATION (NON-FORMULARY) (Omeprazole [Prilosec] 40 MG) PO SCH (09:07)
[2017-10-05] MEDS: PRENATAL VITAMINS W/ FOLIC ACID TABLET (FP) PO SCH (09:07)
[2017-10-05] MEDS: HYDROCORTISONE 0.5% TOPICAL OINTMENT TUBE TP SCH ×2 (09:08→22:42)
[2017-10-05] MEDS ORDERED: diazePAM 5 MG TABLET PO SCH (10:00)
[2017-10-05] MEDS: ASPIRIN COATED 81 MG TABLET.EC PO SCH (10:35)
[2017-10-05] MEDS: LISINOPRIL 5 MG TABLET (FP) PO SCH (10:35)
--- NOTE | 2017-10-05 16:12 | PN ---
[facility] Progress Note (SOAP) Subjective: Headache, interrupted sleep. Patient is scheduled for discharge to rehab tomorrow (pending bed availability) Objective: 10/05/17 16:10 Last Vital Signs Temp Pulse Resp BP Pulse Ox 97.7 F 85 18 143/80 10/05/17 15:12 10/05/17 15:12 10/05/17 15:12 10/05/17 15:12 Laboratory Tests 10/01/17 10/01/17 10/01/17 05:45 12:00 12:04 WBC RBC Hgb Hct MCV MCH MCHC RDW Plt Count MPV Sodium Potassium Chloride Carbon Dioxide Anion Gap BUN Creatinine Creat Clearance w eGFR POC Glucometer 411 Random Glucose Calcium Total Bilirubin AST ALT Alkaline Phosphatase Total Protein Albumin Urine Color Urine Appearance Urine pH Ur Specific [place] Urine Protein Urine Glucose (UA) Urine Ketones Urine Blood Urine Nitrite Urine Bilirubin Urine Urobilinogen Ur Leukocyte Esterase Urine WBC (Auto) Urine RBC (Auto) RPR Titer Hepatitis C Antibody 4.3 H HIV 1&2 Antibody Screen Negative HIV P24 Antigen Negative 10/01/17 10/01/17 10/01/17 17:13 20:00 21:21 WBC RBC Hgb Hct MCV MCH MCHC RDW Plt Count MPV Sodium Potassium Chloride Carbon Dioxide Anion Gap BUN Creatinine Creat Clearance w eGFR POC Glucometer 335 433 Random Glucose Calcium Total Bilirubin AST ALT Alkaline Phosphatase Total Protein Albumin Urine Color Ltyellow Urine Appearance Clear Urine pH 5.0 Ur Specific [place] 1.026 Urine Protein 2+ H Urine Glucose (UA) 3+ H Urine Ketones Negative Urine Blood Negative Urine Nitrite Negative Urine Bilirubin Negative Urine Urobilinogen Negative Ur Leukocyte Esterase Negative Urine WBC (Auto) <1 Urine RBC (Auto) <1 RPR Titer Hepatitis C Antibody HIV 1&2 Antibody Screen HIV P24 Antigen 10/02/17 10/02/17 10/02/17 05:44 05:45 05:45 WBC 8.8 RBC 4.89 Hgb 13.4 Hct 40.8 MCV 83.5 MCH 27.4 MCHC 32.9 RDW 14.6 Plt Count 302 D MPV 9.9 Sodium 138 Potassium 4.4 Chloride 103 Carbon Dioxide 25 Anion Gap 10 BUN 14 Creatinine 1.7 H Creat Clearance w eGFR 43.05 POC Glucometer 263 Random Glucose 376 H* D Calcium 8.5 Total Bilirubin 0.3 D AST 12 L D ALT 18 Alkaline Phosphatase 102 D Total Protein 7.1 Albumin 3.3 L Urine Color Urine Appearance Urine pH Ur Specific [place] Urine Protein Urine Glucose (UA) Urine Ketones Urine Blood Urine Nitrite Urine Bilirubin Urine Urobilinogen Ur Leukocyte Esterase Urine WBC (Auto) Urine RBC (Auto) RPR Titer Hepatitis C Antibody HIV 1&2 Antibody Screen HIV P24 Antigen 10/02/17 10/02/17 10/02/17 05:45 16:33 20:48 WBC RBC Hgb Hct MCV MCH MCHC RDW Plt Count MPV Sodium Potassium Chloride Carbon Dioxide Anion Gap BUN Creatinine Creat Clearance w eGFR POC Glucometer 140 233 Random Glucose Calcium Total Bilirubin AST ALT Alkaline Phosphatase Total Protein Albumin Urine Color Urine Appearance Urine pH Ur Specific [place] Urine Protein Urine Glucose (UA) Urine Ketones Urine Blood Urine Nitrite Urine Bilirubin Urine Urobilinogen Ur Leukocyte Esterase Urine WBC (Auto) Urine RBC (Auto) RPR Titer Nonreactive Hepatitis C Antibody HIV 1&2 Antibody Screen HIV P24 Antigen 10/03/17 10/03/17 10/03/17 07:24 16:39 20:22 WBC RBC Hgb Hct MCV MCH MCHC RDW Plt Count MPV Sodium Potassium Chloride Carbon Dioxide Anion Gap BUN Creatinine Creat Clearance w eGFR POC Glucometer 204 376 291 Random Glucose Calcium Total Bilirubin AST ALT Alkaline Phosphatase Total Protein Albumin Urine Color Urine Appearance Urine pH Ur Specific [place] Urine Protein Urine Glucose (UA) Urine Ketones Urine Blood Urine Nitrite Urine Bilirubin Urine Urobilinogen Ur Leukocyte Esterase Urine WBC (Auto) Urine RBC (Auto) RPR Titer Hepatitis C Antibody HIV 1&2 Antibody Screen HIV P24 Antigen 10/04/17 10/04/17 10/04/17 07:53 16:36 22:48 WBC RBC Hgb Hct MCV MCH MCHC RDW Plt Count MPV Sodium Potassium Chloride Carbon Dioxide Anion Gap BUN Creatinine Creat Clearance w eGFR POC Glucometer 237 293 378 Random Glucose Calcium Total Bilirubin AST ALT Alkaline Phosphatase Total Protein Albumin Urine Color Urine Appearance Urine pH Ur Specific [place] Urine Protein Urine Glucose (UA) Urine Ketones Urine Blood Urine Nitrite Urine Bilirubin Urine Urobilinogen Ur Leukocyte Esterase Urine WBC (Auto) Urine RBC (Auto) RPR Titer Hepatitis C Antibody HIV 1&2 Antibody Screen HIV P24 Antigen Labs noted: hyperglycemia r/t dm Assessment: 10/05/17 16:11 Withdrawal symptoms Noted with hyperglycemia Plan: Continue detox Hyperglycemia secondary to DMT2: continue regimen Patient for rehab tomorrow pending bed availability
[2017-10-05] MEDS ORDERED: INSULIN (NOVOLOG) ASPART 100 UNITS/ML 10ML VIAL ONE (17:44)
[2017-10-05] MEDS: QUEtiapine FUMARATE 200 MG TABLET PO SCH (22:41)
[2017-10-05] MEDS: PATIENT'S OWN MEDICATION (NON-FORMULARY) (Simvastatin 20 MG) PO SCH (22:42)
[2017-10-05] MEDS: INSULIN DETEMIR 100 UNITS/ML MDV SQ SCH (22:44)
[2017-10-05] MEDS: THIAMINE HCL 100 MG TABLET (FP) PO SCH (22:50)
[2017-10-06] MEDS ORDERED: INSULIN (NOVOLOG) ASPART 100 UNITS/ML 10ML VIAL ONE (06:15)
[2017-10-06] MEDS: INSULIN SLIDING SCALE (NOVOLOG) 1 VIAL SQ SCH (06:15)
[2017-10-06] MEDS: glyBURIDE 5 MG TABLET (UD) PO SCH (06:18)
[2017-10-06] MEDS: AMOX TR/POT CLAV 875MG/125MG TABLETS (FP) PO SCH (07:11)
[2017-10-06] MEDS: metFORMIN HCL 500 MG TABLET (FP) PO SCH (07:12)
[2017-10-06 09:48] VITALS: BP 137/81; PULSE 103; TEMP 96.1
[2017-10-06] MEDS: HYDROCORTISONE 0.5% TOPICAL OINTMENT TUBE TP SCH (10:32)
[2017-10-06] MEDS: PRENATAL VITAMINS W/ FOLIC ACID TABLET (FP) PO SCH (10:32)
[2017-10-06] MEDS: ASPIRIN COATED 81 MG TABLET.EC PO SCH (10:32)
[2017-10-06] MEDS: LISINOPRIL 5 MG TABLET (FP) PO SCH (10:32)
[2017-10-06] MEDS: PATIENT'S OWN MEDICATION (NON-FORMULARY) (Omeprazole [Prilosec] 40 MG) PO SCH (10:32)
--- NOTE | 2017-10-06 12:34 | DS ---
[facility] Detox Discharge Summary Admission Date: 10/01/17 Discharge Date: 10/06/17 - History Present History: Alcohol Dependence, Cocaine Dependence Additional Comments: [facility]. PATIENT WAS DISCHARGED FROM DETOX UNIT IN STABLE MEDICAL CONDITION. Pertinent Past History: HTN, Hypercholesterolemia, Type II DM, Neuropathy, Depression, Nicotine Dependence, Insomnia, Bipolar Disorder, Toothache, Eczema, GERD. - Physical Exam Results Vital Signs: Vital Signs Temperature 96.1 F L 10/06/17 09:45 Pulse Rate 103 H 10/06/17 09:45 Respiratory Rate 20 10/06/17 09:45 Blood Pressure 137/81 10/06/17 09:45 O2 Sat by Pulse Oximetry (%) Pertinent Admission Physical Exam Findings: WITHDRAWAL SYMPTOMS. Laboratory Tests 10/01/17 10/01/17 10/01/17 05:45 12:00 12:04 WBC RBC Hgb Hct MCV MCH MCHC RDW Plt Count MPV Sodium Potassium Chloride Carbon Dioxide Anion Gap BUN Creatinine Creat Clearance w eGFR POC Glucometer 411 Random Glucose Calcium Total Bilirubin AST ALT Alkaline Phosphatase Total Protein Albumin Urine Color Urine Appearance Urine pH Ur Specific [place] Urine Protein Urine Glucose (UA) Urine Ketones Urine Blood Urine Nitrite Urine Bilirubin Urine Urobilinogen Ur Leukocyte Esterase Urine WBC (Auto) Urine RBC (Auto) RPR Titer Hepatitis C Antibody 4.3 H HIV 1&2 Antibody Screen Negative HIV P24 Antigen Negative 10/01/17 10/01/17 10/01/17 17:13 20:00 21:21 WBC RBC Hgb Hct MCV MCH MCHC RDW Plt Count MPV Sodium Potassium Chloride Carbon Dioxide Anion Gap BUN Creatinine Creat Clearance w eGFR POC Glucometer 335 433 Random Glucose Calcium Total Bilirubin AST ALT Alkaline Phosphatase Total Protein Albumin Urine Color Ltyellow Urine Appearance Clear Urine pH 5.0 Ur Specific [place] 1.026 Urine Protein 2+ H Urine Glucose (UA) 3+ H Urine Ketones Negative Urine Blood Negative Urine Nitrite Negative Urine Bilirubin Negative Urine Urobilinogen Negative Ur Leukocyte Esterase Negative Urine WBC (Auto) <1 Urine RBC (Auto) <1 RPR Titer Hepatitis C Antibody HIV 1&2 Antibody Screen HIV P24 Antigen 10/02/17 10/02/17 10/02/17 05:44 05:45 05:45 WBC 8.8 RBC 4.89 Hgb 13.4 Hct 40.8 MCV 83.5 MCH 27.4 MCHC 32.9 RDW 14.6 Plt Count 302 D MPV 9.9 Sodium 138 Potassium 4.4 Chloride 103 Carbon Dioxide 25 Anion Gap 10 BUN 14 Creatinine 1.7 H Creat Clearance w eGFR 43.05 POC Glucometer 263 Random Glucose 376 H* D Calcium 8.5 Total Bilirubin 0.3 D AST 12 L D ALT 18 Alkaline Phosphatase 102 D Total Protein 7.1 Albumin 3.3 L Urine Color Urine Appearance Urine pH Ur Specific [place] Urine Protein Urine Glucose (UA) Urine Ketones Urine Blood Urine Nitrite Urine Bilirubin Urine Urobilinogen Ur Leukocyte Esterase Urine WBC (Auto) Urine RBC (Auto) RPR Titer Hepatitis C Antibody HIV 1&2 Antibody Screen HIV P24 Antigen 10/02/17 10/02/17 10/02/17 05:45 16:33 20:48 WBC RBC Hgb Hct MCV MCH MCHC RDW Plt Count MPV Sodium Potassium Chloride Carbon Dioxide Anion Gap BUN Creatinine Creat Clearance w eGFR POC Glucometer 140 233 Random Glucose Calcium Total Bilirubin AST ALT Alkaline Phosphatase Total Protein Albumin Urine Color Urine Appearance Urine pH Ur Specific [place] Urine Protein Urine Glucose (UA) Urine Ketones Urine Blood Urine Nitrite Urine Bilirubin Urine Urobilinogen Ur Leukocyte Esterase Urine WBC (Auto) Urine RBC (Auto) RPR Titer Nonreactive Hepatitis C Antibody HIV 1&2 Antibody Screen HIV P24 Antigen 10/03/17 10/03/17 10/03/17 07:24 16:39 20:22 WBC RBC Hgb Hct MCV MCH MCHC RDW Plt Count MPV Sodium Potassium Chloride Carbon Dioxide Anion Gap BUN Creatinine Creat Clearance w eGFR POC Glucometer 204 376 291 Random Glucose Calcium Total Bilirubin AST ALT Alkaline Phosphatase Total Protein Albumin Urine Color Urine Appearance Urine pH Ur Specific [place] Urine Protein Urine Glucose (UA) Urine Ketones Urine Blood Urine Nitrite Urine Bilirubin Urine Urobilinogen Ur Leukocyte Esterase Urine WBC (Auto) Urine RBC (Auto) RPR Titer Hepatitis C Antibody HIV 1&2 Antibody Screen HIV P24 Antigen 10/04/17 10/04/17 10/04/17 07:53 16:36 22:48 WBC RBC Hgb Hct MCV MCH MCHC RDW Plt Count MPV Sodium Potassium Chloride Carbon Dioxide Anion Gap BUN Creatinine Creat Clearance w eGFR POC Glucometer 237 293 378 Random Glucose Calcium Total Bilirubin AST ALT Alkaline Phosphatase Total Protein Albumin Urine Color Urine Appearance Urine pH Ur Specific [place] Urine Protein Urine Glucose (UA) Urine Ketones Urine Blood Urine Nitrite Urine Bilirubin Urine Urobilinogen Ur Leukocyte Esterase Urine WBC (Auto) Urine RBC (Auto) RPR Titer Hepatitis C Antibody HIV 1&2 Antibody Screen HIV P24 Antigen 10/05/17 10/05/17 10/06/17 16:27 22:44 06:13 WBC RBC Hgb Hct MCV MCH MCHC RDW Plt Count MPV Sodium Potassium Chloride Carbon Dioxide Anion Gap BUN Creatinine Creat Clearance w eGFR POC Glucometer 366 369 400 Random Glucose Calcium Total Bilirubin AST ALT Alkaline Phosphatase Total Protein Albumin Urine Color Urine Appearance Urine pH Ur Specific [place] Urine Protein Urine Glucose (UA) Urine Ketones Urine Blood Urine Nitrite Urine Bilirubin Urine Urobilinogen Ur Leukocyte Esterase Urine WBC (Auto) Urine RBC (Auto) RPR Titer Hepatitis C Antibody HIV 1&2 Antibody Screen HIV P24 Antigen LABS NOTED. - Treatment Hospital Course: Detox Protocol Followed, Detoxed Safely, Responded well, Discharged Condition Good, Rehab Referral Accepted Patient has Accepted a Rehab Referral to: [facility] ([facility] . - Medication Discharge Medications: Ambulatory Orders Aspirin [Low Dose Aspirin EC] 81 mg PO DAILY 01/16/12 Ergocalciferol (Vitamin D2) [Vitamin D] 50,000 unit PO WEEKLY 11/02/15 Doxepin HCl 100 mg PO HS #30 capsule 12/23/15 Quetiapine Fumarate "Xr" [Seroquel XR] 200 mg PO HS #30 tablet 12/23/15 Glyburide [Diabeta] 5 mg PO DAILY #30 tablet 12/27/15 Lisinopril [Prinivil] 2.5 mg PO DAILY #30 tablet 12/27/15 Metformin HCl [Glucophage -] 1,000 mg PO BID@0730,1630 #60 tablet 12/27/15 Naproxen [EC-Naprosyn 375 MG] 375 mg PO BID PRN #30 tablet. 12/27/15 Omeprazole [Prilosec] 40 mg PO DAILY #30 capsule. 12/27/15 Simvastatin [Zocor -] 20 mg PO HS #30 12/27/15 Bupropion HCl [Wellbutrin Xl -] 150 mg PO DAILY #30 tab.sr.24h 06/29/16 Insulin Glargine,Hum.rec.anlog [Lantus Solostar PEN -] 20 units SQ HS 10/01/17 Bupropion HCl [Wellbutrin Xl -] 150 mg PO DAILY #30 tab.sr.24h 10/03/17 Quetiapine Fumarate [Seroquel -] 200 mg PO HS #30 tab 10/03/17 - Diagnosis (1) Alcohol dependence with uncomplicated withdrawal Current Visit: Yes Status: Acute (2) Cocaine dependence, uncomplicated Current Visit: Yes Status: Chronic (3) Eczema Current Visit: Yes Status: Chronic Qualifiers: Eczema type: other Qualified Code(s): L30.8 - Other specified dermatitis (4) GERD (gastroesophageal reflux disease) Current Visit: Yes Status: Chronic Qualifiers: Esophagitis presence: without esophagitis Qualified Code(s): K21.9 - Gastro -esophageal reflux disease without esophagitis (5) HTN (hypertension) Current Visit: Yes Status: Chronic Qualifiers: Hypertension type: essential hypertension (6) Hypercholesterolemia Current Visit: Yes Status: Chronic (7) Nicotine dependence Current Visit: Yes Status: Chronic Qualifiers: Nicotine product type: cigarettes Substance use status: in withdrawal Qualified Code(s): F17.213 - Nicotine dependence, cigarettes, with withdrawal (8) Type II diabetes mellitus Current Visit: Yes Status: Chronic Qualifiers: Diabetes mellitus complication status: without complication Diabetes mellitus correction insulin use: with correction use Qualified Code(s): E11.9 - Type 2 diabetes mellitus without complications; Z79.4 - technician terminal and repeater (current) use of insulin; Z79.4 - technician terminal and repeater (current) use of insulin; Z79.4 - technician terminal and repeater ( current) use of insulin; Z79.4 - technician terminal and repeater (current) use of insulin (9) History of depression Current Visit: Yes Status: Chronic (10) History of bipolar disorder Current Visit: Yes Status: Chronic (11) Neuropathy Current Visit: Yes Status: Chronic (12) Insomnia Current Visit: Yes Status: Acute Qualifiers: Insomnia type: unspecified Qualified Code(s): G47.00 - Insomnia, unspecified (13) MDD (major depressive disorder) Current Visit: Yes Status: Chronic Qualifiers: Major depression recurrence: recurrent Active/Remission status: remission status unspecified Qualified Code(s): F33.9 - Major depressive disorder, recurrent, unspecified - AMA Did Patient Leave Against Medical Advice: No
== END 2017-10-06 13:35 | disposition other institution (70) | DRG 897 ==
LOC: YASAS 09:17 → Y3N 15:33
PROVIDERS: ADMIT Internal Medicine; ATTEND Internal Medicine
PROC: HZ2ZZZZ Detoxification Services for Substance Abuse Treatment (ICD-10-PCS; principal; 2017-10-01)
DX: F10.230 Alcohol dependence with withdrawal, uncomplicated (principal); F14.20 Cocaine dependence, uncomplicated; F33.9 Major depressive disorder, recurrent, unspecified; F17.213 Nicotine dependence, cigarettes, with withdrawal; I10 Essential (primary) hypertension; L30.8 Other specified dermatitis; K21.9 Gastro-esophageal reflux disease without esophagitis; E78.00 Pure hypercholesterolemia, unspecified; E11.65 Type 2 diabetes mellitus with hyperglycemia; G62.9 Polyneuropathy, unspecified; G47.00 Insomnia, unspecified; K04.7 Periapical abscess without sinus; K05.10 Chronic gingivitis, plaque induced; Z79.4 Long term (current) use of insulin; Z91.013 Allergy to seafood
CPT/HCPCS: 36415; 71046-TC; 80053; 81003; 81015; 82962; 85027; 86593; 86803; 87389; 87522; 93005; 93010

== ENCOUNTER 2017-10-06 12:46 | Inpatient (IN) | payer OTHER ==
[2017-10-06 14:52] VITALS: BMI 27.6
[2017-10-06] MEDS ORDERED: P-EPHED 60MG/TRIPROLIDI 2.5MG TABLET PO PRN (15:03)
[2017-10-06] MEDS ORDERED: guaiFENesin/D-METHORPHAN HB 10 ML UNIT-DOSE CUPS PO PRN (15:03)
[2017-10-06] MEDS ORDERED: LOPERAMIDE HCL 2 MG CAPSULE PO PRN (15:03)
[2017-10-06] MEDS ORDERED: MAGNESIUM HYDROX 2400MG/30ML ORAL SUSPENSION 30 ML CUP PO PRN (15:03)
[2017-10-06] MEDS ORDERED: MAG HYDROX/AL HYDROX/SIMETH 30 ML UNIT-DOSE CUP PO PRN (15:03)
[2017-10-06] MEDS ORDERED: MAGNESIUM CITRATE 300 ML BOTTLE PO PRN (15:03)
[2017-10-06] MEDS ORDERED: ACETAMINOPHEN 325 MG TABLET (FP) PO PRN (15:03)
[2017-10-06] MEDS ORDERED: NAPROXEN 375 MG PO PRN (15:03)
[2017-10-06] MEDS ORDERED: MENTHOL/PHENOL 1 EACH UD MM PRN (15:03)
[2017-10-06] MEDS ORDERED: IBUPROFEN 400 MG TABLET (FP) PO PRN (15:03)
--- NOTE | 2017-10-06 15:39 | HP ---
Psychiatrist Admission - Data Date of interview: 10/06/17 Admission source: Identifying data: This is one of the several inpatient rehabilitation admissions for this 51 year old AA male who is single father of two, he is domiciled and curently unemployed, supported on SSD benefits. Medical History: Peripheral neutopahy, GERD, HTN, hypercholesterolemia, DM, past treatment for anal warts. Smokes 4 cigarettes a day. Psychiatric History: PAtient reports first psychiatric contact about 12 yars ago , saw the psychiatrist at [facility] [place] in [place]. He reports one psychiatric hospitalization in 2009 at [facility] and under the care of a psychiatrist at [facility], omi on Seroquel Xr 200 mg , Wellbutrin SR 150mg daily and Doxepin 100 mg po hs, seen by while at and continued medications. Denies history of suicidal attempts, reports was diagnosed as depression and anxiety. Physical/Sexual Abuse/Trauma History: Patient denies Vital Signs: Vital Signs - 24 hr 10/06/17 14:36 Temperature 98.4 F Pulse Rate 91 H Respiratory 20 Rate Blood Pressure 122/81 Allergies/Adverse Reactions: Allergies Allergy/AdvReac Type Severity Reaction Status Date / Time fish derived [Fish derived] Allergy Mild Rash Verified 10/01/17 11:54 No Known Drug Allergies Allergy Verified 10/01/17 11:54 banana AdvReac Severe Vomiting Uncoded 10/01/17 11:54 Date of last physical exam: 10/01/17 Concur with the findings of this exam: Yes - Substance Abuse/Tx History Hx Alcohol Use: Yes (age of first use at 16, 2-3 pints liquor and 2 6 pks of beer ) Hx Substance Use: Yes Substance Use Type: Cocaine (age at first use 17, daily $200-300 ) Mental Status Exam - Mental Status Exam Alert and Oriented to: Time, Place, Person Cognitive Function: Good Patient Appearance: Well Groomed Mood: Sad, Anxious Affect: Appropriate, Mood Congruent Patient Behavior: Appropriate, Cooperative Speech Pattern: Appropriate Voice Loudness: Normal Thought Process: Intact, Goal Oriented Thought Disorder: Not Present Hallucinations: Denies Suicidal Ideation: Denies Homicidal Ideation: Denies Insight/Judgement: Fair Sleep: Poorly Appetite: Fair Muscle strength/Tone: Normal Gait/Station: Normal Psychiatric Findings - Problem List ([place] 1, 2,3) (1) Mood disorder Current Visit: Yes Status: Acute (2) KAELA (generalized anxiety disorder) Current Visit: Yes Status: Acute (3) GERD (gastroesophageal reflux disease) Current Visit: No Status: Chronic Qualifiers: Esophagitis presence: without esophagitis Qualified Code(s): K21.9 - Gastro -esophageal reflux disease without esophagitis (4) HTN (hypertension) Current Visit: No Status: Chronic Qualifiers: Hypertension type: essential hypertension (5) Hypercholesterolemia Current Visit: No Status: Chronic (6) Neuropathy Current Visit: No Status: Chronic (7) Nicotine dependence Current Visit: No Status: Chronic Qualifiers: Nicotine product type: cigarettes Substance use status: in withdrawal Qualified Code(s): F17.213 - Nicotine dependence, cigarettes, with withdrawal (8) Type II diabetes mellitus Current Visit: No Status: Chronic Qualifiers: Diabetes mellitus complication status: without complication Diabetes mellitus senior living insulin use: with intermediate manager use Qualified Code(s): E11.9 - Type 2 diabetes mellitus without complications; Z79.4 - [facility]DC (current) use of insulin; Z79.4 - termite control servicer (current) use of insulin; Z79.4 - FDC ( current) use of insulin; Z79.4 - FDC (current) use of insulin - Initial Treatment Plan Initial Treatment Plan: will continue Seroquel, Wellbutrin add Doxepin 50 mg po hs, monitor progress as needed.
[2017-10-06] MEDS: AMOX TR/POT CLAV 875MG/125MG TABLETS (FP) PO SCH (16:45)
[2017-10-06] MEDS: metFORMIN HCL 500 MG TABLET (FP) PO SCH (16:45)
--- NOTE | 2017-10-06 17:16 | HP ---
[facility] Rehab Assess/Revision - Admission History Admitted to Rehab from: [facility] Date of Admission to Rehab: 10/06/17 - Vital signs Vital Signs: Vital Signs Period Temp Pulse Resp BP Sys/Mcgovern Pulse Ox Last 24 Hr 98.4 F 91 20 122/81 - Findings Detox History & Physical reviewed: Yes Concur with findings: Yes Comments/Additional Findings: DETOX COMPLETED ON . REFERRED TO REHAB
[2017-10-06] MEDS: INSULIN SLIDING SCALE (NOVOLOG) 1 VIAL SQ SCH (18:27)
[2017-10-06] MEDS: DOXEPIN HCL 50 MG CAPSULE PO SCH (21:17)
[2017-10-06] MEDS: ATORVASTATIN CA 40 MG TABLET (FP) PO SCH (21:17)
[2017-10-06] MEDS: THIAMINE HCL 100 MG TABLET (FP) PO SCH (21:18)
[2017-10-06] MEDS: NAPROXEN 500 MG TABLET (FP) PO SCH (21:18)
[2017-10-06] MEDS: PANTOPRAZOLE 40 MG TABLET (FP) PO SCH (21:18)
[2017-10-06] MEDS: INSULIN DETEMIR 100 UNITS/ML MDV SQ SCH (21:21)
[2017-10-06] MEDS ORDERED: PATIENT'S OWN MEDICATION (NON-FORMULARY) (Simvastatin 20 MG) PO SCH (22:00)
[2017-10-06] MEDS ORDERED: PATIENT'S OWN MEDICATION (NON-FORMULARY) (Insulin Glargine,Hum.Rec.Anlog 20 UNITS) SQ SCH (22:00)
[2017-10-06] MEDS ORDERED: DOXEPIN HCL 50 MG CAPSULE PO SCH (22:00)
[2017-10-06] MEDS ORDERED: INSULIN (NOVOLOG) ASPART 100 UNITS/ML 10ML VIAL ONE (22:02)
[2017-10-07] MEDS: metFORMIN HCL 500 MG TABLET (FP) PO SCH ×2 (07:27→16:52)
[2017-10-07] MEDS: glyBURIDE 5 MG TABLET (UD) PO SCH (07:27)
[2017-10-07] MEDS: AMOX TR/POT CLAV 875MG/125MG TABLETS (FP) PO SCH ×2 (07:27→16:53)
[2017-10-07] MEDS: INSULIN SLIDING SCALE (NOVOLOG) 1 VIAL SQ SCH ×3 (07:29→17:11)
[2017-10-07] MEDS ORDERED: INSULIN (NOVOLOG) ASPART 100 UNITS/ML 10ML VIAL ONE (07:31)
[2017-10-07] MEDS: PRENATAL VITAMINS W/ FOLIC ACID TABLET (FP) PO SCH (09:54)
[2017-10-07] MEDS: LISINOPRIL 5 MG TABLET (FP) PO SCH (09:54)
[2017-10-07] MEDS: ASPIRIN COATED 81 MG TABLET.EC PO SCH (09:54)
[2017-10-07] MEDS: PANTOPRAZOLE 40 MG TABLET (FP) PO SCH (09:54)
[2017-10-07] MEDS: NAPROXEN 500 MG TABLET (FP) PO SCH (09:57)
[2017-10-07] MEDS ORDERED: PATIENT'S OWN MEDICATION (NON-FORMULARY) (Omeprazole [Prilosec] 40 MG) PO SCH (10:00)
[2017-10-07 10:07] LABS: ALBUMIN 3.1 g/dl (3.4-5.0); ANION GAP 7 (8-16); BILIRUBIN,TOTAL 0.3 mg/dL (0.2-1.0); BLOOD UREA NITROGEN 25 mg/dL (7-18); CALCIUM 8.9 mg/dL (8.5-10.1); CHLORIDE 102 mmol/L (98-107); CO2 28 mmol/L (21-32); CREATININE 1.4 mg/dL (0.7-1.3); GLUCOSE,RANDOM 219 mg/dL (74-106); POTASSIUM 4.5 mmol/L (3.5-5.1); SGOT/AST 9 U/L (15-37); SGPT/ALT 16 U/L (12-78); SODIUM 137 mmol/L (136-145); TOT PROT 6.3 g/dl (6.4-8.2)
[2017-10-07 10:08] LABS: ALK PHOS 83 U/L (45-117)
[2017-10-07] MEDS ORDERED: ATORVASTATIN CA 20 MG TABLET (FP) ONE (20:24)
[2017-10-07] MEDS: INSULIN DETEMIR 100 UNITS/ML MDV SQ SCH (21:19)
[2017-10-07] MEDS: ATORVASTATIN CA 40 MG TABLET (FP) PO SCH (21:20)
[2017-10-07] MEDS: THIAMINE HCL 100 MG TABLET (FP) PO SCH (21:20)
[2017-10-07] MEDS: DOXEPIN HCL 50 MG CAPSULE PO SCH (21:20)
[2017-10-08] MEDS: INSULIN SLIDING SCALE (NOVOLOG) 1 VIAL SQ SCH ×2 (06:23→17:12)
[2017-10-08] MEDS: glyBURIDE 5 MG TABLET (UD) PO SCH (06:23)
[2017-10-08] MEDS: metFORMIN HCL 500 MG TABLET (FP) PO SCH ×2 (06:41→17:13)
[2017-10-08] MEDS ORDERED: INSULIN (NOVOLOG) ASPART 100 UNITS/ML 10ML VIAL ONE ×2 (06:54→17:19)
[2017-10-08] MEDS: AMOX TR/POT CLAV 875MG/125MG TABLETS (FP) PO SCH ×2 (07:13→17:14)
[2017-10-08] MEDS: ASPIRIN COATED 81 MG TABLET.EC PO SCH (10:06)
[2017-10-08] MEDS: LISINOPRIL 5 MG TABLET (FP) PO SCH (10:07)
[2017-10-08] MEDS: PANTOPRAZOLE 40 MG TABLET (FP) PO SCH (10:07)
[2017-10-08] MEDS: PRENATAL VITAMINS W/ FOLIC ACID TABLET (FP) PO SCH (10:07)
[2017-10-08] MEDS ORDERED: ATORVASTATIN CA 20 MG TABLET (FP) ONE (19:31)
[2017-10-08] MEDS: INSULIN DETEMIR 100 UNITS/ML MDV SQ SCH (21:19)
[2017-10-08] MEDS: THIAMINE HCL 100 MG TABLET (FP) PO SCH (21:20)
[2017-10-08] MEDS: DOXEPIN HCL 50 MG CAPSULE PO SCH (21:20)
[2017-10-08] MEDS: ATORVASTATIN CA 40 MG TABLET (FP) PO SCH (21:20)
[2017-10-09] MEDS: glyBURIDE 5 MG TABLET (UD) PO SCH (06:29)
[2017-10-09] MEDS: INSULIN SLIDING SCALE (NOVOLOG) 1 VIAL SQ SCH (06:29)
[2017-10-09] MEDS: metFORMIN HCL 500 MG TABLET (FP) PO SCH (06:29)
[2017-10-09 06:31] VITALS: BP 130/77; PULSE 87; TEMP 97.9
[2017-10-09] MEDS ORDERED: INSULIN (NOVOLOG) ASPART 100 UNITS/ML 10ML VIAL ONE (06:55)
[2017-10-09] MEDS: AMOX TR/POT CLAV 875MG/125MG TABLETS (FP) PO SCH (07:01)
[2017-10-09] MEDS: PRENATAL VITAMINS W/ FOLIC ACID TABLET (FP) PO SCH (10:00)
[2017-10-09] MEDS: ASPIRIN COATED 81 MG TABLET.EC PO SCH (10:00)
[2017-10-09] MEDS: PANTOPRAZOLE 40 MG TABLET (FP) PO SCH (10:00)
[2017-10-09] MEDS: LISINOPRIL 5 MG TABLET (FP) PO SCH (10:01)
--- NOTE | 2017-10-09 15:49 | PN ---
Psychiatric Progress Note Vital Signs: Vital Signs Period Temp Pulse Resp BP Sys/Mcgovern Pulse Ox Last 24 Hr 97.9 F 87 16-18 130/77 Date of Session: 10/09/17 Chief Complaint:: AMA HPI: Patient is a 51 year old male was admitted on 10/06/17 with history of alcoholl, cocaine, nicotine dependenece comorbid Mood d/o and KAELA. ROS: WNL Current Medications: Active Medications Generic Name Dose Route Start Last Admin Trade Name Freq PRN Reason Stop Dose Admin Acetaminophen 650 mg 10/06/17 15:03 Tylenol - PO Q4H PRN FEVER Al Hydroxide/Mg Hydroxide 30 ml 10/06/17 15:03 Mylanta Oral Suspension - PO Q6H PRN DYSPEPSIA Amoxicillin/Clavulanate Potassium 1 tab 10/06/17 17:30 10/09/17 07:01 Augmentin - 875mg Tablet PO 1 tab BID@0800,1730 GISELL Administration Aspirin 81 mg 10/07/17 10:00 10/09/17 10:00 Ecotrin - PO 81 mg DAILY GISELL Administration Atorvastatin Calcium 40 mg 10/06/17 22:00 10/08/17 21:20 Lipitor - PO 40 mg HS GISELL Administration Bupropion HCl 150 mg 10/07/17 10:00 10/09/17 10:01 Wellbutrin Xl - PO 150 mg DAILY GISELL Administration Doxepin HCl 50 mg 10/06/17 22:00 10/08/17 21:20 Sinequan - PO 50 mg HS GISELL Administration Eucalyptus/Menthol/Phenol/Sorbitol 1 each 10/06/17 15:03 Cepastat Lozenge - MM Q4H PRN SORE THROAT Glyburide 5 mg 10/07/17 07:00 10/09/17 06:29 Diabeta - PO 5 mg DAILY@0700 GISELL Administration Guaifenesin 10 ml 10/06/17 15:03 Robitussin Dm - PO Q6H PRN COUGH Insulin Aspart 1 vial 10/07/17 16:30 10/09/17 06:29 Novolog Vial Sliding Scale - SQ 6 unit BIDAC GISELL Administration Protocol Insulin Detemir 20 units 10/06/17 22:00 10/08/17 21:19 Levemir Vial SQ 20 units HS GISELL Administration Lisinopril 2.5 mg 10/07/17 10:00 10/09/17 10:01 Prinivil PO 2.5 mg DAILY GISELL Administration Loperamide HCl 4 mg 10/06/17 15:03 Imodium - PO Q6H PRN DIARRHEA Magnesium Citrate 300 ml 10/06/17 15:03 Citroma - PO Q48H PRN CONSTIPATION Magnesium Hydroxide 30 ml 10/06/17 15:03 Milk Of Magnesia - PO DAILY PRN CONSTIPATION Metformin HCl 1,000 mg 10/06/17 16:30 10/09/17 06:29 Glucophage - PO 1,000 mg BID@0730,1630 GISELL Administration Pantoprazole Sodium 40 mg 10/06/17 19:15 10/09/17 10:00 Protonix - PO 40 mg DAILY GISELL Administration Multivit/Folic Acid/Iron 1 tab 10/07/17 10:00 10/09/17 10:00 Vitamins (Sjr) - PO 1 tab DAILY GISELL Administration Pseudoephedrine/Triprolidine 1 combo 10/06/17 15:03 Actifed - PO TID PRN NASAL CONGESTION Quetiapine Fumarate 200 mg 10/06/17 22:00 10/08/17 19:55 Seroquel Xr - PO Not Given HS@2000 GISELL Thiamine HCl 100 mg 10/06/17 22:00 10/08/17 21:20 Vitamin B1 - PO 100 mg HS GISELL Administration Current Side Effect: No Lab tests ordered: No Lab tests reviewed: Yes Provider note:: Patient decided to leave treatment ama, met with the patient to explore reasons for terminating treatment at this time, he reports that he has a personal issues he needs to take care of, he was encouraged to stay and focus on his recovery but adamant to leave, he reported that he has his own medications and does not need scripts. Patient seems to be stable for ama discharge. Will f/u at [facility] Total face to face time:: 15 Mental Status Exam - Mental Status Exam Alert and Oriented to: Time, Place, Person Cognitive Function: Good Patient Appearance: Well Groomed Mood: Hopeful Affect: Appropriate, Mood Congruent Patient Behavior: Appropriate, Cooperative Speech Pattern: Clear, Appropriate Voice Loudness: Normal Thought Process: Intact, Goal Oriented Thought Disorder: Not Present Hallucinations: Denies Suicidal Ideation: Denies Homicidal Ideation: Denies Insight/Judgement: Fair Sleep: Fair Appetite: Good Muscle strength/Tone: Normal Gait/Station: Normal Psychiatric Treatment Plan - Problem List (3) GERD (gastroesophageal reflux disease) Qualifiers: Esophagitis presence: without esophagitis Qualified Code(s): K21.9 - Gastro -esophageal reflux disease without esophagitis (4) HTN (hypertension) Qualifiers: Hypertension type: essential hypertension (7) Nicotine dependence Qualifiers: Nicotine product type: cigarettes Substance use status: in withdrawal Qualified Code(s): F17.213 - Nicotine dependence, cigarettes, with withdrawal (8) Type II diabetes mellitus Qualifiers: Diabetes mellitus complication status: without complication Diabetes mellitus supervisor polishing insulin use: with retirement use Qualified Code(s): E11.9 - Type 2 diabetes mellitus without complications; Z79.4 - prison (current) use of insulin; Z79.4 - hog scalder (current) use of insulin; Z79.4 - hog scalder ( current) use of insulin; Z79.4 - hog scalder (current) use of insulin
== END 2017-10-09 16:00 | disposition left against medical advice (07) | DRG 894 ==
LOC: YASAS 12:46 → Y5N 12:48
PROVIDERS: ADMIT Psychiatry & Neurology Psychiatry; ATTEND Psychiatry & Neurology Psychiatry
PROC: HZ42ZZZ Group Counseling for Substance Abuse Treatment, Cognitive-Behavioral (ICD-10-PCS; principal; 2017-10-06)
DX: F10.20 Alcohol dependence, uncomplicated (principal); F14.20 Cocaine dependence, uncomplicated; F17.210 Nicotine dependence, cigarettes, uncomplicated; F39 Unspecified mood [affective] disorder; F41.1 Generalized anxiety disorder; I10 Essential (primary) hypertension; E11.9 Type 2 diabetes mellitus without complications; Z79.4 Long term (current) use of insulin; G62.9 Polyneuropathy, unspecified; K21.9 Gastro-esophageal reflux disease without esophagitis
CPT/HCPCS: 36415; 80053; 82962

== ENCOUNTER 2019-08-27 09:11 | Inpatient (IN) | payer OTHER ==
[2019-08-27 09:46] VITALS: BMI 24.5
--- NOTE | 2019-08-27 10:26 | HP ---
CIWA Score Nausea/Vomitin Muscle Tremors: 3 Anxiety: 3 Agitation: 3 Paroxysmal Sweats: No Perspiration Orientation: 0-Oriented Tacttile Disturbances: 1-Very Mild Itch/Numbness Auditory Disturbances: 0-None Visual Disturbances: 0-None Headache: 2-Mild CIWA-Ar Total Score: 14 - Admission Criteria OASAS Guidelines: Admission for Medically Managed Detox: Requires at least one of the followin. CIWA greater than 12 2. Seizures within the past 24 hours 3. Delirium tremens within the past 24 hours 4. Hallucinations within the past 24 hours 5. Acute intervention needed for co occurring medical disorder 6. Acute intervention needed for co occurring psychiatric disorder 7. Severe withdrawal that cannot be handled at a lower level of care (continued vomiting, continued diarrhea, abnormal vital signs) requiring intravenous medication and/or fluids 8. Admitting History and Physical - Admission Chief Complaint: i need help to stop drinking alcohol and cocaine History of Present Illness: this 53 years old male with alcohol and cocaine dependence seeking detox, had previous admission in the past, history of htn hypercoholesterolemia,nasal congestion,type 2 dm,iddm,gerd anxiety,depression nicotine dependence1/2 pack/day last admission [facility] 09/21/17 to 10/06/17,rehab10/06/17 to 10/09/17 longest sobriety 8 months plan for outpatient program after detox has his own residence History Source: Patient - Past Medical History Cardiovascular: Yes: HTN Pulmonary: Yes: Other (bronchitis) Gastrointestinal: Yes: GERD Psych: Yes: Anxiety, Depression Musculoskeletal: Yes: Chronic low back pain Endocrine: Yes: Cathay's Disease - Smoking History Smoking history: Current every day smoker Have you smoked in the past 12 months: Yes Aproximately how many cigarettes per day: 10 - Alcohol/Substance Use Hx Alcohol Use: Yes (age of first use at 16, 2-3 pints liquor and 2 6 pks of beer ) History of Substance Use: reports: Cocaine - Social History Usual Living Arrangement: Yes: Alone Occupation: unemployed History of Recent Travel: No Other Social History: this 53 years old with alcohol dependence and cocaine dependence,smoke 1/2 pack/day,unemployed for detox from alcohol and cocaine Admission ROS BHS - HPI Chief Complaint: i need help to stop drinking alcohol and cocaine Allergies/Adverse Reactions: Allergies Allergy/AdvReac Type Severity Reaction Status Date / Time fish derived [Fish derived] Allergy Mild Rash Verified 08/27/19 09:46 No Known Drug Allergies Allergy Verified 08/27/19 09:46 banana AdvReac Severe Vomiting Uncoded 08/27/19 09:46 History of Present Illness: this 53 years old male with alcohol and cocaine dependence,seeking detox,had previous admissions in this facility, smoke 1/2 pack/day longest sobriety 8 months history of htn,dm,gerd, anxiety and depression Exam Limitations: No Limitations - Ebola screening Have you traveled outside of the country in the last 21 days: No (N) Have you had contact with anyone from an Ebola affected area: No Do you have a fever: No - Review of Systems Constitutional: Loss of Appetite, Night Sweats, Changes in sleep, Weakness EENT: reports: Nose Congestion Respiratory: reports: Cough (for 1 week) Cardiac: reports: No Symptoms Reported GI: reports: Nausea, Poor Appetite, Abdominal cramping : reports: No Symptoms Reported Musculoskeletal: reports: Back Pain, Muscle Pain Integumentary: reports: Dryness Neuro: reports: Headache, Tremors Endocrine: reports: No Symptoms Reported Hematology: reports: No Symptoms Reported Psychiatric: reports: No Sypmtoms Reported, Judgement Intact, Mood/Affect Appropiate, Orientated x3, Anxious, Depressed Patient History - Patient Medical History Hx Anemia: No Hx Asthma: No Hx Chronic Obstructive Pulmonary Disease (COPD): No Hx Cancer: No Hx Cardiac Disorders: No Hx Congestive Heart Failure: No Hx Hypertension: Yes Hx Hypercholesterolemia: Yes (simvastatin 20 mg) Hx Pacemaker: No HX Cerebrovascular Accident: No Hx Seizures: No Hx Dementia: No Hx Diabetes: Yes (on meds) Hx Gastrointestinal Disorders: No Hx Liver Disease: No Hx Genitourinary Disorders: No Hx Sexually Transmitted Disorders: No Hx Renal Disease (ESRD): No Hx Thyroid Disease: No Hx Human Immunodeficiency Virus (HIV): No (Last tested approx. 1 year ago: NEGATIVE.) Hx Hepatitis C: No (NEGATIVE HX) Hx Depression: Yes (anxiety) Hx Suicide Attempt: No Hx Bipolar Disorder: Yes (On meds.) Hx Schizophrenia: No Other Medical History: no suicdal,no homicidal - Patient Surgical History Past Surgical History: No Hx Neurologic Surgery: No Hx Cataract Extraction: No Hx Cardiac Surgery: No Hx Lung Surgery: No Hx Breast Surgery: No Hx Breast Biopsy: No Hx Abdominal Surgery: No Hx Appendectomy: No Hx Cholecystectomy: No Hx Genitourinary Surgery: No Hx Section: No Hx Orthopedic Surgery: No Anesthesia Reaction: No - PPD History Documented Results: Positive w/o proof Implanted On Prior [facility] Admission?: No PPD to be Administered?: No - Smoking Cessation Smoking history: Current every day smoker Have you smoked in the past 12 months: Yes Aproximately how many cigarettes per day: 10 Cigars Per Day: 0 Hx Chewing Tobacco Use: No Initiated information on smoking cessation: Yes 'Breaking Loose' booklet given: 08/27/19 - Substance & Tx. History Hx Alcohol Use: Yes Hx Substance Use: Yes Substance Use Type: Alcohol, Cocaine Hx Substance Use Treatment: Yes (last [facility] 10/01/18 to 10/06/18) - Substances abused Alcohol Substance route: Oral Frequency: Daily Amount used: LIQUOR- 2-4BTLS/ BEERS- 4 6PKS DAILY(16OZ) Age of first use: 16 Date of last use: 08/27/19 Cocaine Substance route: Inhalation Frequency: Daily Amount used: $50-100 Age of first use: 16 Date of last use: 08/27/19 Admission Physical Exam BHS - Vital Signs Vital Signs: Vital Signs - 24 hr 08/27/19 09:38 Temperature 98.3 F Pulse Rate 81 Respiratory 19 Rate Blood Pressure 160/93 - Physical General Appearance: Yes: Moderate Distress, Tremorous, Irritable, Anxious HEENTM: Yes: Normal ENT Inspection, Normocephalic, CHRISTINE Respiratory: Yes: Chest Non-Tender, Lungs Clear, Normal Breath Sounds Neck: Yes: Within Normal Limits, Supple, Trachea in good position Breast: Yes: Within Normal Limits Cardiology: Yes: Within Normal Limits, Regular Rhythm, Regular Rate, S1, S2 Abdominal: Yes: Within Normal Limits, Normal Bowel Sounds, Non Tender, Flat, Soft Genitourinary: Yes: Within Normal Limits Musculoskeletal: Yes: Back pain, Muscle Pain Extremities: Yes: Within Normal Limits, Normal Range of Motion, Tremors Neurological: Yes: field irrigation worker II-XII NML intact, Fully Oriented, Alert, Motor Strength 5/5 Integumentary: Yes: Dry Lymphatic: Yes: Within Normal Limits - Diagnostic (1) Alcohol dependence with uncomplicated withdrawal Current Visit: No Status: Acute (2) Cocaine dependence Current Visit: No Status: Acute (3) GERD (gastroesophageal reflux disease) Current Visit: No Status: Chronic Qualifiers: Esophagitis presence: without esophagitis Qualified Code(s): K21.9 - Gastro -esophageal reflux disease without esophagitis (4) HTN (hypertension) Current Visit: No Status: Chronic Qualifiers: Hypertension type: essential hypertension (5) Hypercholesterolemia Current Visit: No Status: Chronic (6) Neuropathy Current Visit: No Status: Chronic (7) Nicotine dependence Current Visit: No Status: Chronic Qualifiers: Nicotine product type: cigarettes Substance use status: in withdrawal Qualified Code(s): F17.213 - Nicotine dependence, cigarettes, with withdrawal (8) Type II diabetes mellitus Current Visit: No Status: Chronic Qualifiers: Diabetes mellitus penitentiary insulin use: with inspector aligning use Diabetes mellitus complication status: without complication Qualified Code(s): E11.9 - Type 2 diabetes mellitus without complications; Z79.4 - dross skimmer (current) use of insulin (9) Insomnia secondary to depression with anxiety Current Visit: Yes Status: Acute Cleared for Admission S - Detox or Rehab [facility] Level of Care: Medically Managed Detox Regimen/Protocol: Valium Breathalyzer - Breathalyzer Breathalyzer: 0 Urine Drug Screen - Test Device Lot number: [id number] Expiration date: 04/07/21 - Control Is test valid?: Yes - Results Drug screen NEGATIVE: No Urine drug screen results: ANCELMO-Cocaine Inpatient Rehab Admission - Rehab Decision to Admit Inpatient rehab admission?: No
[2019-08-27] MEDS ORDERED: MELATONIN 5 MG TABLETS PO PRN (10:39)
[2019-08-27] MEDS ORDERED: diazePAM 5 MG TABLET PO PRN (10:39)
[2019-08-27] MEDS ORDERED: hydrOXYzine PAMOATE 25 MG CAPSULE (FP) PO PRN (10:39)
[2019-08-27] MEDS ORDERED: IBUPROFEN 400 MG TABLET (FP) PO PRN (10:39)
[2019-08-27] MEDS ORDERED: MAG HYDROX/AL HYDROX/SIMETH 30 ML UNIT-DOSE CUP PO PRN (10:39)
[2019-08-27] MEDS ORDERED: BISMUTH SUBSALICYLATE 262 MG/15 ML BTL PO PRN (10:39)
[2019-08-27] MEDS ORDERED: ACETAMINOPHEN 325 MG TABLET (FP) PO PRN ×2 (10:39)
[2019-08-27] MEDS ORDERED: METHOCARBAMOL 500 MG TABLET PO PRN (10:39)
[2019-08-27] MEDS ORDERED: MAGNESIUM HYDROX 2400MG/30ML ORAL SUSPENSION 30 ML CUP PO PRN (10:39)
[2019-08-27] MEDS ORDERED: MENTHOL/PHENOL 1 EACH UD MM PRN (10:39)
[2019-08-27] MEDS ORDERED: MAGNESIUM CITRATE 300 ML BOTTLE PO PRN (10:39)
[2019-08-27] MEDS ORDERED: AZITHROMYCIN 250 MG TABLET PO ONE (10:47)
[2019-08-27] MEDS ORDERED: ALBUTEROL SO4 8 GM HFA INHALER IH PRN (10:59)
[2019-08-27] MEDS ORDERED: ERGOCALCIFEROL (VIT D2) 50,000 UNIT (1.25 MG) CAPSULE PO SCH (11:15)
[2019-08-27] MEDS: HYDROCORTISONE 0.5% TOPICAL CREAM 30 GM TUBE TP SCH ×2 (14:10→21:48)
[2019-08-27] MEDS: diazePAM 5 MG TABLET PO SCH ×2 (14:10→21:45)
[2019-08-27 15:44] LABS: HEMATOCRIT 41.3 % (35.4-49); MCH 29.2 pg (25.7-33.7); MCHC 33.8 g/dl (32.0-35.9); MEAN CELL VOLUME 86.5 fl (80-96); MEAN PLT VOLUME 9.6 fl (7.5-11.1); PLATELET COUNT 259 K/MM3 (134-434); RBC 4.77 M/mm3 (4.00-5.60); RDW 14.9 % (11.9-15.9); WHITE BLOOD COUNT 6.5 K/mm3 (4.0-10.0)
[2019-08-27 16:23] LABS: BILIRUBIN,TOTAL 0.1 mg/dL (0.2-1); BLOOD UREA NITROGEN 16.6 mg/dL (7-18); CALCIUM 8.5 mg/dL (8.5-10.1); CREATININE 1.8 mg/dL (0.55-1.3); POTASSIUM 4.3 mmol/L (3.5-5.1); TOT PROT 6.3 g/dl (6.4-8.2)
[2019-08-27] MEDS: ATORVASTATIN CA 10 MG TABLET (FP) PO SCH (21:45)
[2019-08-27] MEDS: THIAMINE HCL 100 MG TABLET (FP) PO SCH (21:45)
[2019-08-27] MEDS: SENNOSIDES 8.6MG TABLET (FP) PO SCH (21:45)
[2019-08-27] MEDS: INSULIN (LEVEMIR) 100 UNITS/ML UNITS SQ SCH (21:47)
[2019-08-27] MEDS ORDERED: SENNOSIDES 8.6MG TABLET (FP) PO SCH (22:00)
[2019-08-28] MEDS: diazePAM 5 MG TABLET PO SCH ×3 (06:49→22:42)
[2019-08-28] MEDS ORDERED: PATIENT'S OWN MEDICATION (NON-FORMULARY) (Cholecalciferol (Vitamin D3) [Vitamin D3] 50,000 PO SCH (10:00)
[2019-08-28] MEDS: HYDROCORTISONE 0.5% TOPICAL CREAM 30 GM TUBE TP SCH ×2 (10:27→22:54)
[2019-08-28] MEDS: ASPIRIN 81 MG CHEWABLE TABLETS PO SCH (10:27)
[2019-08-28] MEDS: PRENATAL VITAMINS W/ FOLIC ACID TABLET (FP) PO SCH (10:27)
[2019-08-28] MEDS: AZITHROMYCIN 250 MG TABLET PO SCH (10:27)
[2019-08-28] MEDS: SENNOSIDES 8.6MG TABLET (FP) PO SCH ×2 (10:27→22:42)
--- NOTE | 2019-08-28 12:12 | PN ---
S CIWA - CIWA Score Nausea/Vomitin-Mild Nausea/No Vomiting Muscle Tremors: 3 Anxiety: 3 Agitation: 3 Paroxysmal Sweats: 3 Orientation: 0-Oriented Tacttile Disturbances: 0-None Auditory Disturbances: 0-None Visual Disturbances: 0-None Headache: 1-Very Mild CIWA-Ar Total Score: 14 S Progress Note (SOAP) Subjective: pt admitted yesterday for alcohol/cocaine detox O: Vital Signs - 24 hr 08/27/19 08/27/19 08/27/19 13:40 18:34 20:51 Temperature 97.7 F 98.2 F 97.7 F Pulse Rate 86 88 84 Respiratory 18 18 17 Rate Blood Pressure 144/86 148/83 148/87 08/28/19 08/28/19 08/28/19 00:30 03:30 07:03 Temperature 97.5 F L Pulse Rate 80 Respiratory 18 18 18 Rate Blood Pressure 168/99 08/28/19 08/28/19 07:51 09:43 Temperature 97.9 F Pulse Rate 95 H 91 H Respiratory 18 16 Rate Blood Pressure 147/96 144/90 Laboratory Tests 08/27/19 08/27/19 08/27/19 10:24 11:10 11:10 WBC 6.5 RBC 4.77 Hgb 14.0 Hct 41.3 MCV 86.5 MCH 29.2 MCHC 33.8 RDW 14.9 Plt Count 259 MPV 9.6 Sodium 140 Potassium 4.3 Chloride 108 H Carbon Dioxide 27 Anion Gap 5 L BUN 16.6 Creatinine 1.8 H Est GFR (CKD-EPI)AfAm 49.40 Est GFR (CKD-EPI)NonAf 42.63 POC Glucometer 298 Random Glucose 292 H Calcium 8.5 Total Bilirubin 0.1 L AST 18 ALT 20 Alkaline Phosphatase 98 Total Protein 6.3 L Albumin 3.0 L 08/27/19 08/27/19 08/28/19 16:32 21:40 06:49 WBC RBC Hgb Hct MCV MCH MCHC RDW Plt Count MPV Sodium Potassium Chloride Carbon Dioxide Anion Gap BUN Creatinine Est GFR (CKD-EPI)AfAm Est GFR (CKD-EPI)NonAf POC Glucometer 165 248 99 Random Glucose Calcium Total Bilirubin AST ALT Alkaline Phosphatase Total Protein Albumin low GFR High BP a/p: AUD- detox protocol HTN- will start norvasc, b/c with high Cr- lisinopril maynot be best choice for now DM- BGM 99 this morning, on insulin
[2019-08-28] MEDS: amLODIPine BESYLATE 10 MG TABLET (FP) PO SCH (13:20)
--- NOTE | 2019-08-28 14:37 | EKG ---
Test Reason : Blood Pressure : / mmHG Vent. Rate : 075 BPM Atrial Rate : 075 BPM P-R Int : 168 ms QRS Dur : 092 ms QT Int : 416 ms P-R-T Axes : 077 025 029 degrees QTc Int : 464 ms NORMAL SINUS RHYTHM POSSIBLE LEFT ATRIAL ENLARGEMENT LEFT VENTRICULAR HYPERTROPHY NONSPECIFIC T WAVE ABNORMALITY PROLONGED QT ABNORMAL ECG WHEN COMPARED WITH ECG OF 01-OCT-2017 17:11, INVERTED T WAVES HAVE REPLACED NONSPECIFIC T WAVE ABNORMALITY IN LATERAL LEADS Confirmed by ENMANUEL YORK MD ([id number]) on 08/28/2019 2:37:03 PM Referred By: Confirmed By:ENMANUEL YORK MD
[2019-08-28] MEDS: THIAMINE HCL 100 MG TABLET (FP) PO SCH (22:42)
[2019-08-28] MEDS: ATORVASTATIN CA 10 MG TABLET (FP) PO SCH (22:42)
[2019-08-28] MEDS: INSULIN (LEVEMIR) 100 UNITS/ML UNITS SQ SCH (22:46)
[2019-08-29] MEDS: diazePAM 5 MG TABLET PO SCH ×2 (06:35→18:55)
--- NOTE | 2019-08-29 08:52 | CONSULT ---
[facility] Psychiatric Consult - Data Date of interview: 08/29/19 Admission source: [facility] Identifying data: Patient is a 53 year old single male, father of two, retired, domiciled, and is supported by [facility]. This is one of multiple admissions for patient. Patient admitted to for alcohol and cocaine dependence. Substance Abuse History: Smoking Cessation. Smoking history: Current every day smoker. Have you smoked in the past 12 months: Yes. Aproximately how many cigarettes per day: 10. Cigars Per Day: 0. Hx Chewing Tobacco Use: No. Initiated information on smoking cessation: Yes. 'Breaking Loose' booklet given : 08/27/19. - Substance & Tx. History. Hx Alcohol Use: Yes. Hx Substance Use : Yes. Substance Use Type: Alcohol, Cocaine. Hx Substance Use Treatment: Yes ( last [facility] 10/01/18 to 10/06/18). - Substances abused. Alcohol. Substance route: Oral. Frequency: Daily. Amount used: LIQUOR- 2-4BTLS/ BEERS- 4 6PKS DAILY(16OZ). Age of first use: 16. Date of last use: 08/27/19. Cocaine. Substance route: Inhalation. Frequency: Daily. Amount used: $50-100. Age of first use: 16. Date of last use: 08/27/19 Medical History: Peripheral neutopahy, GERD, HTN, hypercholesterolemia, DM, past treatment for anal warts. Psychiatric History: Patient denies history of psychiatric hospitalizations and suicide attempts. States his first psychiatric contact was at [facility] ten years ago. Diagnosis of MDD and anxiety disorder. Mr. Hopkins continues to receive outpatient psychiatric care at the same clinic today by Dr. Love. He reports being prescribed wellbutrin 150mg XL + Seroquel 200mg HS. At present patient reports difficulty sleeping. Physical/Sexual Abuse/Trauma History: denies. Mental Status Exam - Mental Status Exam Alert and Oriented to: Time, Place, Person Cognitive Function: Good Patient Appearance: Well Groomed Mood: Withdrawn Affect: Mood Congruent Patient Behavior: Fatigued, Cooperative Speech Pattern: Appropriate Voice Loudness: Normal Thought Process: Goal Oriented Thought Disorder: Not Present Hallucinations: Denies Suicidal Ideation: Denies Homicidal Ideation: Denies Insight/Judgement: Poor Sleep: Poorly Appetite: Fair Muscle strength/Tone: Normal Gait/Station: Normal Psychiatric Findings - Problem List ([place] 1, 2,3) (1) Substance induced mood disorder Current Visit: Yes Status: Acute (2) Alcohol dependence Current Visit: Yes Status: Acute (3) Cocaine dependence, uncomplicated Current Visit: Yes Status: Chronic (4) History of depression Current Visit: Yes Status: Chronic (5) Substance-induced sleep disorder Current Visit: Yes Status: Acute - Initial Treatment Plan Initial Treatment Plan: Psychoeducation provided. Detoxification in progress. Will order Wellbutrin 150mg XL + Seroquel 100mg HS. Benefits and side effects discussed. Verbal consent given.
[2019-08-29] MEDS: SENNOSIDES 8.6MG TABLET (FP) PO SCH ×2 (10:18→22:08)
[2019-08-29] MEDS: amLODIPine BESYLATE 10 MG TABLET (FP) PO SCH (10:18)
[2019-08-29] MEDS: ASPIRIN 81 MG CHEWABLE TABLETS PO SCH (10:18)
[2019-08-29] MEDS: PRENATAL VITAMINS W/ FOLIC ACID TABLET (FP) PO SCH (10:19)
[2019-08-29] MEDS: AZITHROMYCIN 250 MG TABLET PO SCH (10:19)
[2019-08-29] MEDS: HYDROCORTISONE 0.5% TOPICAL CREAM 30 GM TUBE TP SCH ×2 (10:20→22:08)
--- NOTE | 2019-08-29 11:26 | PN ---
S CIWA - CIWA Score Nausea/Vomitin-No Nausea/No Vomiting Muscle Tremors: None Anxiety: 2 Agitation: 0-Normal Activity Paroxysmal Sweats: 3 Orientation: 0-Oriented Tacttile Disturbances: 0-None Auditory Disturbances: 0-None Visual Disturbances: 0-None Headache: 0-None Present CIWA-Ar Total Score: 5 BHS Progress Note (SOAP) Subjective: c/o sweats, headache, and anxiety. Objective: 08/29/19 11:24 Vital Signs 08/29/19 08/29/19 08/29/19 03:30 05:55 09:53 Temperature 98.2 F 97.2 F L Pulse Rate 85 85 Respiratory 18 18 18 Rate Blood Pressure 148/88 173/90 H Laboratory Last Values WBC 6.5 K/mm3 (4.0-10.0) 08/27/19 11:10 RBC 4.77 M/mm3 (4.00-5.60) 08/27/19 11:10 Hgb 14.0 GM/dL (11.7-16.9) 08/27/19 11:10 Hct 41.3 % (35.4-49) 08/27/19 11:10 MCV 86.5 fl (80-96) 08/27/19 11:10 MCH 29.2 pg (25.7-33.7) 08/27/19 11:10 MCHC 33.8 g/dl (32.0-35.9) 08/27/19 11:10 RDW 14.9 % (11.9-15.9) 08/27/19 11:10 Plt Count 259 K/MM3 (134-434) 08/27/19 11:10 MPV 9.6 fl (7.5-11.1) 08/27/19 11:10 Sodium 140 mmol/L (136-145) 08/27/19 11:10 Potassium 4.3 mmol/L (3.5-5.1) 08/27/19 11:10 Chloride 108 mmol/L (98-107) H 08/27/19 11:10 Carbon Dioxide 27 mmol/L (21-32) 08/27/19 11:10 Anion Gap 5 MMOL/L (8-16) L 08/27/19 11:10 BUN 16.6 mg/dL (7-18) 08/27/19 11:10 Creatinine 1.8 mg/dL (0.55-1.3) H 08/27/19 11:10 Est GFR (CKD-EPI)AfAm 49.40 08/27/19 11:10 Est GFR (CKD-EPI)NonAf 42.63 08/27/19 11:10 POC Glucometer 89 UNITS (80-120) 08/29/19 06:36 Random Glucose 292 mg/dL (74-106) H 08/27/19 11:10 Calcium 8.5 mg/dL (8.5-10.1) 08/27/19 11:10 Total Bilirubin 0.1 mg/dL (0.2-1) L 08/27/19 11:10 AST 18 U/L (15-37) 08/27/19 11:10 ALT 20 U/L (13-61) 08/27/19 11:10 Alkaline Phosphatase 98 U/L (45-117) 08/27/19 11:10 Total Protein 6.3 g/dl (6.4-8.2) L 08/27/19 11:10 Albumin 3.0 g/dl (3.4-5.0) L 08/27/19 11:10 RPR Titer Nonreactive (NONREACTIVE) 08/27/19 11:10 HIV 1&2 Antibody Screen Negative 08/27/19 11:10 HIV P24 Antigen Negative 08/27/19 11:10 Labs noted. Assessment: 08/29/19 11:24 AOX3, in no acute respiratory distress. Full ROM, ambulating in the unit. Withdrawal symptoms For d/c tomorrow. Plan: continue detox. D/C in AM.
[2019-08-29] MEDS ORDERED: QUEtiapine FUMARATE 100 MG TABLET (FP) PO SCH (22:00)
[2019-08-29] MEDS: ATORVASTATIN CA 10 MG TABLET (FP) PO SCH (22:04)
[2019-08-29] MEDS: INSULIN (LEVEMIR) 100 UNITS/ML UNITS SQ SCH (22:08)
[2019-08-29] MEDS: THIAMINE HCL 100 MG TABLET (FP) PO SCH (22:09)
[2019-08-30] MEDS ORDERED: diazePAM 5 MG TABLET PO ONE (06:00)
[2019-08-30 06:31] VITALS: BP 127/74; PULSE 82; TEMP 98.1
--- NOTE | 2019-08-30 08:47 | DS ---
[facility] Detox Discharge Summary Admission Date: 08/27/19 Discharge Date: 08/30/19 - History Present History: Alcohol Dependence, Cocaine Dependence - Physical Exam Results Vital Signs: Vital Signs Temperature 98.1 F 08/30/19 05:25 Pulse Rate 82 08/30/19 05:25 Respiratory Rate 18 08/30/19 05:25 Blood Pressure 127/74 08/30/19 05:25 O2 Sat by Pulse Oximetry (%) Pertinent Admission Physical Exam Findings: Vital Signs Temperature 98.1 F 08/30/19 05:25 Pulse Rate 82 08/30/19 05:25 Respiratory Rate 18 08/30/19 05:25 Blood Pressure 127/74 08/30/19 05:25 O2 Sat by Pulse Oximetry (%) Laboratory Tests 08/27/19 08/27/19 08/27/19 10:24 11:10 11:10 WBC 6.5 RBC 4.77 Hgb 14.0 Hct 41.3 MCV 86.5 MCH 29.2 MCHC 33.8 RDW 14.9 Plt Count 259 MPV 9.6 Sodium 140 Potassium 4.3 Chloride 108 H Carbon Dioxide 27 Anion Gap 5 L BUN 16.6 Creatinine 1.8 H Est GFR (CKD-EPI)AfAm 49.40 Est GFR (CKD-EPI)NonAf 42.63 POC Glucometer 298 Random Glucose 292 H Calcium 8.5 Total Bilirubin 0.1 L AST 18 ALT 20 Alkaline Phosphatase 98 Total Protein 6.3 L Albumin 3.0 L RPR Titer HIV 1&2 Antibody Screen HIV P24 Antigen 08/27/19 08/27/19 08/27/19 11:10 11:10 16:32 WBC RBC Hgb Hct MCV MCH MCHC RDW Plt Count MPV Sodium Potassium Chloride Carbon Dioxide Anion Gap BUN Creatinine Est GFR (CKD-EPI)AfAm Est GFR (CKD-EPI)NonAf POC Glucometer 165 Random Glucose Calcium Total Bilirubin AST ALT Alkaline Phosphatase Total Protein Albumin RPR Titer Nonreactive HIV 1&2 Antibody Screen Negative HIV P24 Antigen Negative 08/27/19 08/28/19 08/28/19 21:40 06:49 16:34 WBC RBC Hgb Hct MCV MCH MCHC RDW Plt Count MPV Sodium Potassium Chloride Carbon Dioxide Anion Gap BUN Creatinine Est GFR (CKD-EPI)AfAm Est GFR (CKD-EPI)NonAf POC Glucometer 248 99 199 Random Glucose Calcium Total Bilirubin AST ALT Alkaline Phosphatase Total Protein Albumin RPR Titer HIV 1&2 Antibody Screen HIV P24 Antigen 08/28/19 08/29/19 08/29/19 22:40 06:36 16:30 WBC RBC Hgb Hct MCV MCH MCHC RDW Plt Count MPV Sodium Potassium Chloride Carbon Dioxide Anion Gap BUN Creatinine Est GFR (CKD-EPI)AfAm Est GFR (CKD-EPI)NonAf POC Glucometer 215 89 138 Random Glucose Calcium Total Bilirubin AST ALT Alkaline Phosphatase Total Protein Albumin RPR Titer HIV 1&2 Antibody Screen HIV P24 Antigen 08/29/19 08/30/19 22:01 06:04 WBC RBC Hgb Hct MCV MCH MCHC RDW Plt Count MPV Sodium Potassium Chloride Carbon Dioxide Anion Gap BUN Creatinine Est GFR (CKD-EPI)AfAm Est GFR (CKD-EPI)NonAf POC Glucometer 215 172 Random Glucose Calcium Total Bilirubin AST ALT Alkaline Phosphatase Total Protein Albumin RPR Titer HIV 1&2 Antibody Screen HIV P24 Antigen aaox3 ambulating no acute distress - Treatment Hospital Course: Detox Protocol Followed, Detoxed Safely, Responded well, Discharged Condition Good, Rehab Referral Accepted Patient has Accepted a Rehab Referral to: pt referred to [facility] - Medication Discharge Medications: Ambulatory Orders Aspirin [ASA -] 81 mg PO DAILY 08/27/19 Cholecalciferol (Vitamin D3) [Vitamin D3] 50,000 unit PO WEEKLY 08/27/19 Fluticasone Propionate [Flovent Hfa] 44 mcg IH BID 08/27/19 Insulin Detemir [Levemir Flextouch] 20 unit SQ HS 08/27/19 Ipratropium Keyes 1 puff IH DAILY 08/27/19 Lisinopril [Zestril] 2.5 mg PO DAILY 08/27/19 Loratadine [Allergy Relief] 10 mg PO DAILY 08/27/19 Omeprazole 40 mg PO DAILY 08/27/19 Sennosides [Senna] 8.6 mg PO BID 08/27/19 Simvastatin [Zocor] 20 mg PO HS 08/27/19 metFORMIN HCL [Glucophage -] 1,000 mg PO BID 08/27/19 - Diagnosis (1) Alcohol dependence Current Visit: Yes Status: Chronic Qualifiers: Substance use status: uncomplicated Qualified Code(s): F10.20 - Alcohol dependence, uncomplicated (2) Insomnia secondary to depression with anxiety Current Visit: Yes Status: Acute (3) Substance induced mood disorder Current Visit: Yes Status: Acute (4) Substance-induced sleep disorder Current Visit: Yes Status: Acute (5) Cocaine dependence, uncomplicated Current Visit: Yes Status: Chronic (6) History of depression Current Visit: Yes Status: Chronic (7) Alcohol dependence with uncomplicated withdrawal Current Visit: Yes Status: Acute (8) Cocaine dependence Current Visit: No Status: Acute (9) KAELA (generalized anxiety disorder) Current Visit: No Status: Acute (10) Insomnia Current Visit: No Status: Acute Qualifiers: Insomnia type: unspecified Qualified Code(s): G47.00 - Insomnia, unspecified (11) Mood disorder Current Visit: No Status: Acute (12) Toothache Current Visit: No Status: Acute (13) Eczema Current Visit: No Status: Chronic Qualifiers: Eczema type: other Qualified Code(s): L30.8 - Other specified dermatitis (14) GERD (gastroesophageal reflux disease) Current Visit: No Status: Chronic Qualifiers: Esophagitis presence: without esophagitis Qualified Code(s): K21.9 - Gastro -esophageal reflux disease without esophagitis (15) HTN (hypertension) Current Visit: No Status: Chronic Qualifiers: Hypertension type: essential hypertension (16) History of bipolar disorder Current Visit: No Status: Chronic (17) Hypercholesterolemia Current Visit: No Status: Chronic (18) MDD (major depressive disorder) Current Visit: No Status: Chronic Qualifiers: Major depression recurrence: recurrent Active/Remission status: remission status unspecified Qualified Code(s): F33.9 - Major depressive disorder, recurrent, unspecified (19) Neuropathy Current Visit: No Status: Chronic (20) Nicotine dependence Current Visit: No Status: Chronic Qualifiers: Nicotine product type: cigarettes Substance use status: in withdrawal Qualified Code(s): F17.213 - Nicotine dependence, cigarettes, with withdrawal (21) Type 2 diabetes mellitus with hyperglycemia Current Visit: No Status: Chronic (22) Type II diabetes mellitus Current Visit: No Status: Chronic Qualifiers: Diabetes mellitus exterminator termite insulin use: with exterminator termite use Diabetes mellitus complication status: without complication Qualified Code(s): E11.9 - Type 2 diabetes mellitus without complications; Z79.4 - longterm (current) use of insulin - AMA Did Patient Leave Against Medical Advice: No
== END 2019-08-30 09:20 | disposition home or self-care (01) | DRG 897 ==
LOC: YASAS 09:11 → Y6N 10:38
PROVIDERS: ADMIT Allergy & Immunology; ATTEND Allergy & Immunology
PROC: HZ2ZZZZ Detoxification Services for Substance Abuse Treatment (ICD-10-PCS; principal; 2019-08-27)
DX: F10.230 Alcohol dependence with withdrawal, uncomplicated (principal); F14.20 Cocaine dependence, uncomplicated; F19.282 Other psychoactive substance dependence with psychoactive substance-induced sleep disorder; F33.9 Major depressive disorder, recurrent, unspecified; F17.213 Nicotine dependence, cigarettes, with withdrawal; F51.05 Insomnia due to other mental disorder; F19.24 Other psychoactive substance dependence with psychoactive substance-induced mood disorder; F41.0 Panic disorder [episodic paroxysmal anxiety]; F39 Unspecified mood [affective] disorder; I10 Essential (primary) hypertension; E11.9 Type 2 diabetes mellitus without complications; G47.00 Insomnia, unspecified; K08.89 Other specified disorders of teeth and supporting structures; L30.9 Dermatitis, unspecified; K21.9 Gastro-esophageal reflux disease without esophagitis; E78.00 Pure hypercholesterolemia, unspecified; G62.9 Polyneuropathy, unspecified; Z79.4 Long term (current) use of insulin; Z91.013 Allergy to seafood; Z91.018 Allergy to other foods
CPT/HCPCS: 36415; 71046-TC-FY; 80053; 82962; 85027; 86593; 87389; 93005; 93010